=== PATIENT | female | born 1950 | race Caucasian/White ===

== ENCOUNTER 2017-02-06 05:39 | Emergency (ER) | payer OTHER ==
[~2017-02-06] VITALS: Ht 156.2 cm; Wt 63.8 kg
[2017-02-06 05:42] VITALS: TEMP 36.5; Ht 156.2 cm; Wt 63.8 kg
[2017-02-06] MEDS ORDERED: SULF800T23 PO (05:58)
[2017-02-06] MEDS ORDERED: SEPTRA DS HOME PACK 1 EA VIAL PO ONE (06:00)
[2017-02-06 06:05] VITALS: BP 140/72; PULSE 60; O2SAT 96
--- NOTE | 2017-02-06 06:28 | EMERGENCY ROOM VISIT NOTE ---
ED Visit Note First contact with patient: 05:48 CHIEF COMPLAINT: Frequent and painful urination HISTORY OF PRESENT ILLNESS: This 66-year-old female presents to the emergency department complaining of increased frequency of urination, burning pain with urination, and a feeling of incomplete voiding for the past 4-5 days. The patient passes very small volumes of urine with each episode of voiding. The patient does not have significant abdominal pain. They deny back pain, fever, or vaginal discharge. The patient has had frequent urinary tract infections in the past. Patient feels they are not at risk for STIs. REVIEW OF SYSTEMS: A 6 system review of systems was completed with positives and pertinent negatives listed in the HPI. ALLERGIES: Penicillin MEDICATIONS: See EMR PMH: See EMR SOCIAL HISTORY: See EMR PHYSICAL EXAM: Vital Signs: Reviewed Nurse's notes, vital signs stable. GENERAL : White female, in no acute distress, they do not appear toxic, well-developed, well-nourished. ABDOMEN: Positive bowel sounds x 4. The abdomen is soft, mildly tender in the suprapubic area, but no masses or organs are felt. There is no CVA tenderness. The skin is clear. NEURO: Alert and oriented to person place and time. EMERGENCY DEPARTMENT COURSE: I examined the patient. The urine dip showed signs of urine infection. The urine was sent for culture and sensitivity. The patient was given Bactrim. The patient was discharged home in good condition. Problem List Medical Problems: (1) Contusion of face Status: Resolved Current/Historical Medications Scheduled Sulfamethoxazole-Trimethoprim (Bactrim Ds 800MG/160MG), 1 TAB PO BID Allergies Coded Allergies: Penicillins (Verified Allergy, Intermediate, allergy test, 02/06/17) Vital Signs Date Time Temp Pulse Resp B/P (MAP) Pulse Ox O2 Delivery O2 Flow Rate FiO2 02/06/17 06:05 60 16 140/72 96 02/06/17 05:42 36.5 57 18 128/77 96 Room Air Laboratory Results Test 02/06/17 05:55 Medications Administered Medications (Trade) Dose Ordered Sig/Bhargav Route Start Time Stop Time Status Last Admin Dose Admin Trimethoprim/ Sulfamethoxazole (Sulfameth/ Trimeth Ds 800/ 160MG Home Pack) 1 homepack UD ONCE PO 02/06/17 06:00 02/06/17 06:01 DC 02/06/17 06:04 1 HOMEPACK Departure Information Impression Primary Impression: Urinary tract infection Dispostion Home / Self-Care Condition GOOD Prescriptions Sulfamethoxazole-Trimethoprim (Bactrim Ds 800MG/160MG) 1 Tab Tab 1 TAB PO BID for 9 Days, #18 TAB Prov: Dennis Bryant PA-C 02/06/17 Referrals RV. Elias MD (PCP) Forms HOME CARE DOCUMENTATION FORM, IMPORTANT VISIT INFORMATION Patient Instructions My [facility] Additional Instructions You were seen and evaluated today on an emergency basis only. This is not a substitute for, or an effort to provide, complete comprehensive medical care. It is not possible to recognize and treat all injuries or illnesses in a single emergency department visit. For this reason it is recommended that you followup with your primary care physician with any ongoing or persistent symptoms. Trimethoprim-Sulfamethoxazole(Bactrim DS): Take one pill twice daily for 10 days for your urine infection. All antibiotics can cause diarrhea. If this occurs and you feel worse or it does not resolve in 1-2 days follow up with your doctor or return to the Emergency Department as this could be signs of serious underlying problems. Any medication can cause an allergic reaction, stop the pills immediately and return to the ER for rash, hives, breathing difficulties, or swelling. You are welcome to return to the emergency department anytime with new, worsening, or concerning symptoms.
[2017-02-06 06:57] LABS: URINE APPEARANCE TURBID (CLEAR); URINE BILIRUBIN NEG (NEG); URINE COLOR YELLOW; URINE EPITHELIAL CELL AUTO >30 /lpf (0-5); URINE NITRITE NEG (NEG); URINE SPECIFIC GRAVITY 1.029 (1.000-1.030); UROBILINOGEN NEG (NEG)
[2017-02-06 06:58] LABS: MANUAL MICROSCOPIC REQUIRED? NO; REVIEW REQ? NO; ZZUR CULT IF INDIC CLEAN CATCH NO
== END 2017-02-06 06:06 | disposition home or self-care (01) ==
LOC: C.EDB 05:40
DX: N39.0 Urinary tract infection, site not specified (principal); Z88.0 Allergy status to penicillin

== ENCOUNTER → 2017-02-13 | Outpatient (CLI) | payer OTHER ==
[~2017-02-13] MED LIST: SULF800T23 PO
== END | disposition home or self-care (01) ==
LOC: C.PATHSPEC 17:12
PROVIDERS: ATTEND Nurse Practitioner Adult Health
DX: R31.0 Gross hematuria (principal)

== ENCOUNTER → 2017-02-15 | Outpatient (CLI) | payer OTHER ==
[~2017-02-15] MED LIST changes: +OPTIRAY 320 IV PRN
--- NOTE | 2017-02-15 14:02 | DIAGNOSTIC IMAGING REPORT ---
CT UROGRAM CLINICAL HISTORY: Gross hematuria. COMPARISON STUDY: Abdominal CT dated 05/31/2016. TECHNIQUE: Before and following the IV administration of 118 cc of Optiray 320, CT urogram of the abdomen and pelvis is performed from the lung bases to the proximal femora. Images are reviewed in the axial, sagittal, and coronal planes. IV contrast was administered without complication. A dose lowering technique was utilized adhering to the principles of ALARA. CT DOSE: 620.16 mGy.cm FINDINGS: Lung bases: The heart is normal in size and without pericardial effusion. Bilateral fat-containing Bochdalek hernias are identified. There is a 1.1 cm nodule in the right middle lobe seen on image #9, unchanged from previous. This appears to contain macroscopic fat and may represent a hamartoma. The lung bases are otherwise clear. A tiny hiatal hernia is noted. Liver: The contrast-enhanced liver is enlarged, measuring 18.6 cm in length. The liver demonstrates diffusely diminished attenuation consistent with hepatic steatosis. There is no intrahepatic biliary ductal dilatation. The hepatic veins and portal veins are patent. Gallbladder: Small calcified gallstones are observed. Spleen: Normal in size and attenuation. Pancreas: Unremarkable. Adrenal glands: Unremarkable. Kidneys and ureters: The contrast enhanced kidneys are normal in size and without hydronephrosis. There is a 2 mm nonobstructing calculus in the lower pole of the left kidney. No right renal calculi are identified on the unenhanced images. The kidneys enhance and excrete symmetrically. A parapelvic cyst is noted in the left lower pole. There is no enhancing renal cortical mass lesion identified. There is no evidence of urothelial lesion within the renal pelvis bilaterally or along the course of either ureter. The right proximal ureter is not well opacified by excreted contrast. Abdominal vasculature: The abdominal aorta is normal in course and caliber noting scattered foci of atherosclerotic calcification. Bowel: The small bowel and colon are normal in course and caliber. There are scattered colonic diverticula without CT evidence of acute diverticulitis. The appendix is well-visualized and normal. Peritoneum: There is no intraperitoneal free air or abdominal ascites. There is a fat-containing umbilical hernia. There is a 1.5 x 2.5 cm lobulated water attenuation structure identified adjacent to the cecum and the right lower quadrant on image #234. This is discrete from the appendix. Lymphadenopathy: None. Pelvic viscera: The bladder is decompressed and grossly unremarkable. The uterus and adnexa are normal as visualized. Skeletal structures: The skeletal structures are osteopenic. There is a moderate compression deformity of T12. Mild lumbosacral spondylosis is observed. Hemangiomas are noted in the bodies of L1, L2, and L3. No lytic or blastic bony lesions are seen. IMPRESSION: 1. The kidneys are normal in size and without hydronephrosis. A 2 mm nonobstructing calculus is present in the left kidney. 2. There is no enhancing renal cortical mass, and no evidence of urothelial lesion within the renal pelvis bilaterally or along the course of the ureters. 3. The bladder is decompressed and grossly unremarkable. 4. Hepatomegaly and hepatic steatosis. 5. An 11 mm pulmonary nodule is seen in the right middle lobe and is unchanged from 05/31/2016. This contains foci of macroscopic fat and likely represents a benign hamartoma. Consider follow-up with a dedicated CT scan of the chest for further interrogation of the thorax. 6. There is a 2.5 cm lobulated water attenuation structure identified adjacent to the cecum. This likely represents a lymphangioma or inclusion cyst and is discrete from the normal appendix. This is of doubtful significance. 7. Small gallstones are noted. 8. Additional findings as above. Electronically signed by: Shimon Clemons M.D. 02/15/2017 2:00 PM Dictated Date/Time: 02/15/2017 1:49 PM
== END | disposition home or self-care (01) ==
LOC: C.CTS 13:08
PROVIDERS: ATTEND Nurse Practitioner Adult Health
DX: R31.0 Gross hematuria (principal); N20.0 Calculus of kidney; R16.0 Hepatomegaly, not elsewhere classified; K76.0 Fatty (change of) liver, not elsewhere classified; R91.1 Solitary pulmonary nodule; K63.89 Other specified diseases of intestine; K80.20 Calculus of gallbladder without cholecystitis without obstruction

== ENCOUNTER → 2017-08-22 | Outpatient (CLI) | payer OTHER ==
--- NOTE | 2017-08-22 14:27 | DIAGNOSTIC IMAGING REPORT ---
CT SCAN OF THE CHEST WITHOUT IV CONTRAST CLINICAL HISTORY: Pulmonary nodule. COMPARISON STUDY: Abdominal CT dated 05/31/2016. TECHNIQUE: CT scan of the thorax was performed from the thoracic inlet to the upper abdomen. Images are reviewed in the axial, sagittal, and coronal planes. IV contrast was not administered for this examination as per the referring clinician. A dose lowering technique was utilized adhering to the principles of ALARA. CT DOSE: 269.75 mGycm FINDINGS: Thyroid: Imaged portions of the thyroid gland are normal in size and attenuation. Thoracic aorta: The thoracic aorta is normal in caliber and demonstrates standard 3-vessel arch anatomy. Heart: The heart is normal in size and without pericardial effusion. Lungs and pleural spaces: A fat-containing Bochdalek hernia is seen at the right lung base. No airspace consolidation or pleural effusion is seen. The trachea and central airways are clear. There is a 12 mm pulmonary nodule in the right middle lobe, best seen on axial image #190. This has not significant changed from 05/31/2016. Foci of fat are suggested within this nodule. No new pulmonary nodule is identified. Mediastinum: There is no mediastinal lymphadenopathy. There are calcified prevascular lymph nodes. Caren: Not well assessed without IV contrast. There are calcified left hilar nodes. Axillae: There is no axillary lymphadenopathy. Upper abdomen: A tiny hiatal hernia is noted. Partially visualized upper abdominal viscera is otherwise within normal limits. Skeletal structures: The skeletal structures are osteopenic. A moderate compression deformity is noted in the body of L2. Mild degenerative change is seen throughout the thoracic spine. No lytic or blastic bony lesions are seen. IMPRESSION: 1. There is no airspace consolidation or pleural effusion. 2. There is unchanged appearance of a 12 mm pulmonary nodule in the right middle lobe. This is pathologically indeterminant. Foci of intralesional fat are suggested and this may represent a benign hamartoma. Continued follow-up is recommended. See below. 3. No new pulmonary nodule is identified. 4. A chronic compression deformity of L2 is unchanged. Please refer to below summary of Fleischner criteria recommendations for follow-up of incidental CT nodules (Isabel Deleon, Guidelines for management of small pulmonary nodules detected on CT scans: A statement from the Fleischner Society, Radiology 237: [phone].) SOLID NODULES Solitary nodule size: <6 mm * low risk patients: no follow-up needed * high risk patients: optional CT at 12 months Solitary nodule size: 6-8 mm * low risk patients: follow-up at 6-12 months, then consider further follow-up at 18-24 months * high risk patients: initial follow-up CT at 6-12 months and then at 18-24 months if no change Solitary nodule size: >8 mm * either low or high risk patients - consider follow-up CT at 3 months, and/or CT-PET, and/or biopsy Multiple nodules size: <6 mm * low risk patients: no routine follow-up * high risk patients: optional CT at 12 months Multiple nodules size: 6-8 mm * low risk patients: follow-up at 3-6 months, then consider further follow-up at 18-24 months * high risk patients: follow-up at 3-6 months, then at 18-24 months if no change Multiple nodules size: >8 mm * low risk patients: follow-up at 3-6 months, then consider further follow-up at 18-24 months * high risk patients: follow-up at 3-6 months, then at 18-24 months if no change Note: newly detected indeterminate nodule in persons 35 years of age or older. * low risk patients: minimal or absent history of smoking and/or other known risk factors * high risk patients: history of smoking or of other known risk factors (e.g. first degree relative with lung cancer, or exposure to asbestos, radon, uranium) * if a nodule up to 8 mm is partly solid or is ground glass further follow-up is required after 24 months to exclude possible slow growing adenocarcinoma (IRMA) SUBSOLID NODULES Solitary pure ground-glass nodule * nodule size <6 mm - no CT follow-up required * nodule size >=6 mm - follow-up CT at 6-12 months, then every 2 years until 5 years Solitary part-solid nodule * nodule size <6 mm - no CT follow-up required * nodule size >=6 mm - follow-up CT at 3-6 months. If unchanged, and solid component remains <6 mm, then annual follow-up for 5 years Multiple subsolid nodules * nodule size <6 mm - follow-up CT at 3-6 months, consider further follow-up at 2 and 4 years if stable * nodule size >=6 mm - follow-up CT at 3-6 months, subsequent management based on the most suspicious nodule(s) Electronically signed by: Shimon Clemons M.D. 08/22/2017 2:26 PM Dictated Date/Time: 08/22/2017 2:21 PM
== END | disposition home or self-care (01) ==
LOC: C.CTS 14:06
PROVIDERS: ATTEND Internal Medicine
DX: R91.1 Solitary pulmonary nodule (principal)

== ENCOUNTER → 2017-09-20 | Outpatient (CLI) | payer OTHER | END | disposition home or self-care (01) | LOC: C.LAB1850 15:23 | PROVIDERS: ATTEND Internal Medicine | DX: R31.0 Gross hematuria (principal) ==

== ENCOUNTER → 2017-09-21 | Outpatient (CLI) | payer OTHER ==
[2017-09-21 09:32] LABS: BASO % 0.5 %; BASO ABS # 0.03 K/uL (0-0.2); EOS % 2.2 %; EOS ABS # 0.12 K/uL (0-0.5); HEMATOCRIT 41.4 % (37-47); HEMOGLOBIN 13.9 g/dL (12.0-16.0); IG# 0.02 K/uL (0.00-0.02); LYMPH % 33.2 %; LYMPH ABS # 1.82 K/uL (1.2-3.4); MEAN CELL VOLUME 88.8 fL (80-100); MEAN CORPUSCULAR HEMOGLOBIN 29.8 pg (25-34); MEAN CORPUSCULAR HGB CONC 33.6 g/dl (32-36); MEAN PLATELET VOLUME 11.1 fL (7.4-10.4); MONO ABS # 0.44 K/uL (0.11-0.59); NEUT % 55.7 %; NEUT ABS # 3.05 K/uL (1.4-6.5); PLATELET COUNT 216 K/uL (130-400); RED CELL DISTRIBUTION WIDTH CV 14.1 % (11.5-14.5); RED CELL DISTRIBUTION WIDTH SD 45.9 fL (36.4-46.3); WHITE BLOOD COUNT 5.48 K/uL (4.8-10.8)
[2017-09-21 09:52] LABS: ALBUMIN 3.4 gm/dl (3.4-5.0); ALT/SGPT 25 U/L (12-78); AST/SGOT 12 U/L (15-37); BLOOD UREA NITROGEN 17 mg/dl (7-18); CALCIUM 8.5 mg/dl (8.5-10.1); CARBON DIOXIDE 23 mmol/L (21-32); CREATININE 0.61 mg/dl (0.60-1.20); GLUCOSE 110 mg/dl (70-99); POTASSIUM 4.1 mmol/L (3.5-5.1); SODIUM 140 mmol/L (136-145)
[2017-09-21 10:03] LABS: ALKALINE PHOSPHATASE 75 U/L (45-117); CHOLESTEROL 237 mg/dl (0-200); LDL CHOLESTEROL CALCULATED 151 mg/dl; TOTAL PROTEIN 7.3 gm/dl (6.4-8.2)
== END | disposition home or self-care (01) ==
LOC: C.LAB1850 08:19
PROVIDERS: ATTEND Internal Medicine
DX: Z13.1 Encounter for screening for diabetes mellitus (principal); Z13.220 Encounter for screening for lipoid disorders; R31.0 Gross hematuria; R91.1 Solitary pulmonary nodule; Z13.0 Encounter for screening for diseases of the blood and blood-forming organs and certain disorders involving the immune mechanism; N20.0 Calculus of kidney; M25.561 Pain in right knee; Z13.29 Encounter for screening for other suspected endocrine disorder

== ENCOUNTER → 2018-02-23 | Outpatient (CLI) | payer OTHER ==
--- NOTE | 2018-02-23 10:25 | DIAGNOSTIC IMAGING REPORT ---
(CHEST) THORAX WITHOUT CT DOSE: 335.55 mGycm HISTORY: LUNG NODULE TECHNIQUE: Multiaxial CT images of the chest were performed without contrast. A dose lowering technique was utilized adhering to the principles of ALARA. COMPARISON: Chest CT . FINDINGS: Stable 12 mm nodule within the right middle lobe on image 209. There appear to be small foci of fat located within this nodule. Therefore, this likely represents a benign hamartoma. No pneumothorax. No pleural effusions. The central airways are patent. Calcified left hilar lymph nodes are again noted. Old, healed right lower rib fractures. No suspicious lytic or blastic osseous lesions. No mediastinal hilar lymphadenopathy. The heart is normal in size. Normal caliber thoracic aorta. The visualized spleen and adrenal glands are unremarkable. IMPRESSION: Stable 12 mm nodule within the right middle lobe. This favors a benign hematoma as described above. An additional one year chest CT follow up can be performed to ensure stability. Electronically signed by: Raj Basurto M.D. 02/23/2018 10:24 AM Dictated Date/Time: 02/23/2018 10:18 AM
== END | disposition home or self-care (01) ==
LOC: C.CTS 09:40
PROVIDERS: ATTEND Internal Medicine
DX: R91.1 Solitary pulmonary nodule (principal)

== ENCOUNTER 2024-02-24 04:30 | Observation (INO) ==
--- NOTE | 2024-02-24 04:44 | Emergency Department Note ---
History of Present Illness General Chief complaint: Trauma Stated complaint: Fall Down Stairs, Wrist Pain, Hit Head Time Seen by Provider: 02/24/24 04:30 History of Present Illness This 73-year-old female who states she is healthy with no active medical problems presents the ER for falling down 10 steps who was a trauma alert. Patient complains of head injury, neck pain, right rib pain and bilateral wrist pain. No blood thinners. Patient denies loss of conscious, numbness, tingling, localized weakness. Home Medications Medication Instructions Recorded Confirmed Type cholecalciferol (vitamin D3) 50 50 mcg PO DAILY #90 caps 11/11/20 02/24/24 Rx mcg (2,000 unit) capsule mecobalamin (vitamin B12) 1,000 1,000 mcg PO DAILY #90 tabs 11/11/20 02/24/24 Rx mcg chewable tablet magnesium citrate 100 mg capsule 200 mg PO QAM 02/24/24 02/24/24 History omega 8-zrd-elw-fish oil 1,000 mg 1 cap PO QAM 02/24/24 02/24/24 History (120 mg-180 mg) capsule (Fish Oil) Allergies Allergy/AdvReac Type Severity Reaction Status Date / Time Penicillins Allergy Intermediate allergy Verified 02/24/24 08:53 test prednisone AdvReac Verified 02/24/24 08:53 Past Med/Surg History Problem List (Updated 02/24/24 @ 06:33 by Fadumo Rodas PA-C) Fall (Acute) Head injury (Acute) Left wrist fracture (Acute) Right wrist fracture (Acute) Grieving Colon cancer screening Left shoulder pain Vitamin D deficiency disease Right ear impacted cerumen Health care maintenance Deformity of foot (Acute) Hyperglycemia (Acute) Hyperlipidemia (Acute) Knee pain, bilateral (Acute) Lung nodule (Acute) Nephrolithiasis (Acute) Osteopenia (Acute) Medical History Abdominal bloating Cerumen impaction No known health problems Urinary tract infection Contusion of face Surgical History S/P breast lumpectomy Family History Mother Cardiac disorder Father Cardiac disorder Myocardial infarction Adrenal cancer Aunt No problems noted. 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 Beliefs That Will Affect Care: Spiritual Spiritual Healthcare Practices: Strict on the chemicals going into her body NO NSAIDS NO Contrast dye DIET: Non-Lectin and no lactose marital status: Current Living Situation: Alone current occupational status: employed Feels Safe at Home: Yes Childhood Exposure to Second-Hand Smoke: Yes Dental Care, Regularly: Yes Physical Activity Frequency: Daily Seatbelt Use: always Sunscreen Use: Yes Assistive Devices: Glasses Review of Systems A total of 10 systems reviewed and were otherwise negative Physical Exam Vital Signs Vital Signs - 24 hr 02/24/24 04:35 02/24/24 04:36 02/24/24 04:36 Temperature 36.9 C 36.9 C Temperature Source Oral Pulse Rate 77 74 Pulse Rate [Left Radial] Pulse Rate from SpO2 Sensor Pulse Rhythm Regular Pulse Rhythm [Left Radial] Pulse Strength Normal Pulse Strength [Left Radial] Respiratory Rate 16 16 Respiratory Effort / Characteristics Non-Labored Spontaneous Respiratory Depth Normal Respiratory Pattern Regular Blood Pressure 127/51 L Blood Pressure [Right Arm] Blood Pressure Mean 76 Blood Pressure Mean [Right Arm] Blood Pressure Position Lying Blood Pressure Position [Right Arm] Pulse Oximetry 100 98 Oxygen Delivery Method Room Air Room Air Room Air Sepsis Recent Fever Within 48 Hours No Sepsis New/Unexplained Change in Mental Status No Sepsis Action Taken by Nursing No Action Required 02/24/24 04:38 02/24/24 04:50 02/24/24 05:30 Temperature Temperature Source Pulse Rate 81 Pulse Rate [Left Radial] 78 Pulse Rate from SpO2 Sensor Pulse Rhythm Pulse Rhythm [Left Radial] Regular Pulse Strength Pulse Strength [Left Radial] Normal Respiratory Rate 16 Respiratory Effort / Characteristics Non-Labored Spontaneous Respiratory Depth Normal Respiratory Pattern Regular Blood Pressure Blood Pressure [Right Arm] 106/63 Blood Pressure Mean Blood Pressure Mean [Right Arm] 77 Blood Pressure Position Blood Pressure Position [Right Arm] Lying Pulse Oximetry 98 Oxygen Delivery Method Room Air Room Air Sepsis Recent Fever Within 48 Hours Sepsis New/Unexplained Change in Mental Status Sepsis Action Taken by Nursing 02/24/24 06:10 02/24/24 07:03 02/24/24 07:22 Temperature Temperature Source Pulse Rate 82 88 Pulse Rate [Left Radial] 77 Pulse Rate from SpO2 Sensor 82 Pulse Rhythm Pulse Rhythm [Left Radial] Regular Pulse Strength Pulse Strength [Left Radial] Normal Respiratory Rate 16 12 14 Respiratory Effort / Characteristics Non-Labored Spontaneous Respiratory Depth Normal Respiratory Pattern Regular Blood Pressure 123/68 Blood Pressure [Right Arm] 113/64 Blood Pressure Mean 97 Blood Pressure Mean [Right Arm] 80 Blood Pressure Position Blood Pressure Position [Right Arm] Pulse Oximetry 97 92 93 Oxygen Delivery Method Room Air Room Air Room Air Sepsis Recent Fever Within 48 Hours Sepsis New/Unexplained Change in Mental Status Sepsis Action Taken by Nursing 02/24/24 08:00 02/24/24 08:31 02/24/24 08:31 Temperature Temperature Source Pulse Rate 89 90 83 Pulse Rate [Left Radial] Pulse Rate from SpO2 Sensor 88 Pulse Rhythm Pulse Rhythm [Left Radial] Pulse Strength Pulse Strength [Left Radial] Respiratory Rate 14 21 14 Respiratory Effort / Characteristics Respiratory Depth Respiratory Pattern Blood Pressure 134/72 121/70 121/70 Blood Pressure [Right Arm] Blood Pressure Mean 92 79 79 Blood Pressure Mean [Right Arm] Blood Pressure Position Blood Pressure Position [Right Arm] Pulse Oximetry 94 95 Oxygen Delivery Method Room Air Sepsis Recent Fever Within 48 Hours Sepsis New/Unexplained Change in Mental Status Sepsis Action Taken by Nursing 02/24/24 08:47 02/24/24 09:30 02/24/24 10:09 Temperature Temperature Source Pulse Rate 81 83 91 H Pulse Rate [Left Radial] Pulse Rate from SpO2 Sensor 90 Pulse Rhythm Pulse Rhythm [Left Radial] Pulse Strength Pulse Strength [Left Radial] Respiratory Rate 19 16 Respiratory Effort / Characteristics Respiratory Depth Respiratory Pattern Blood Pressure 138/68 131/67 Blood Pressure [Right Arm] Blood Pressure Mean 87 88 Blood Pressure Mean [Right Arm] Blood Pressure Position Blood Pressure Position [Right Arm] Pulse Oximetry 95 93 Oxygen Delivery Method Room Air Sepsis Recent Fever Within 48 Hours Sepsis New/Unexplained Change in Mental Status Sepsis Action Taken by Nursing 02/24/24 10:51 Temperature Temperature Source Pulse Rate 83 Pulse Rate [Left Radial] Pulse Rate from SpO2 Sensor 83 Pulse Rhythm Pulse Rhythm [Left Radial] Pulse Strength Pulse Strength [Left Radial] Respiratory Rate 13 Respiratory Effort / Characteristics Respiratory Depth Respiratory Pattern Blood Pressure 106/88 Blood Pressure [Right Arm] Blood Pressure Mean 94 Blood Pressure Mean [Right Arm] Blood Pressure Position Blood Pressure Position [Right Arm] Pulse Oximetry 92 Oxygen Delivery Method Sepsis Recent Fever Within 48 Hours Sepsis New/Unexplained Change in Mental Status Sepsis Action Taken by Nursing PHYSICAL EXAM: VITALS: Vitals are noted on the nurse's note and reviewed by myself. Vital signs stable. GENERAL: White female, in no acute distress, nondiaphoretic, well-developed well-nourished. SKIN: Left-sided forehead abrasion and contusion, the rest of the skin was without obvious lacerations or abrasions. Capillary reflex less than 2 seconds. HEAD: Normocephalic atraumatic. EARS: External auditory canals clear, EYES: Pupils equal round and reactive to light and accommodation. Conjunctivae without injection, sclerae without icterus. Extraocular movements intact. NOSE: Patent, turbinates without inflammation or discharge. No sinus tenderness. No septal hematoma or bleeding. FACE: No facial bone tenderness. Full range of motion of the jaw without tenderness. MOUTH: Mucous membranes moist. Pharynx without erythema or exudate. Uvula midline. Airway patent. Tongue does not deviate. NECK: Supple without nuchal rigidity. Cervical spine is minimally tender to palpation C5 and 6 and c-collar was placed. No JVD. HEART: Regular rate and rhythm LUNGS: Clear to auscultation bilaterally without wheezes, rales or rhonchi. No dullness to percussion. No retractions or accessory muscle use. No chest wall tenderness. ABDOMEN: Positive bowel sounds x 4. Normal tympanic percussion. Soft, nontender, without masses or organomegaly. No guarding or rebound tenderness. MUSCULOSKELETAL: No tenderness of the thoracic or lumbar spine. No tenderness with pelvic rocking. Bilateral wrist tender to palpation, full range of motion without tenderness to palpation in all other extremities. Peripheral pulses 2+. NEURO: Patient was alert and oriented to person place and time. Normal sensation to light and sharp touch. No focal neurological deficits. Course Administered Medications Acetaminophen (Acetaminophen 500 Mg Tab) 1,000 mg PO TID YANIRA Stop: 03/25/24 13:59 Last Admin: 02/24/24 22:36 Dose: Not Given Documented By: Admin: 02/24/24 14:47 Dose: Not Given Documented By: WANDA Discontinued Medications Bupivacaine HCl (Bupivacaine/Epinephrine 0.5% 1:200,000 1.8 Ml Carp) Confirm Administered Dose 1.8 ml .ROUTE .ST-MED ONE Stop: 02/24/24 10:18 Last Admin: 02/24/24 11:25 Dose: 1.8 ml Documented By: KIERAN Bupivacaine HCl (Bupivacaine/Epinephrine 0.5% 1:200,000 1.8 Ml Carp) Confirm Administered Dose 1.8 ml .ROUTE .ST-MED ONE Stop: 02/24/24 10:19 Last Admin: 02/24/24 11:26 Dose: 1.8 ml Documented By: KIERAN Bupivacaine HCl (Bupivacaine/Epinephrine 0.5% 1:200,000 1.8 Ml Carp) Confirm Administered Dose 5.4 ml .ROUTE .[facility] ONE Stop: 02/24/24 10:20 Last Admin: 02/24/24 11:23 Dose: Not Given Documented By: KIERAN Bupivacaine HCl/Epinephrine Bitart (Bupivacaine/Epinephrine 0.25% 1:200,000 30 Ml Vial) 5 ml INFIL NOW ONE Stop: 02/24/24 10:32 Last Admin: 02/24/24 12:09 Dose: Not Given Documented By: KIERAN Bupivacaine HCl/Epinephrine Bitart (Bupivacaine/Epinephrine 0.5% Mpf 1:200,000 30 Ml Vial) 5 ml INFIL NOW ONE Stop: 02/24/24 12:56 Last Admin: 02/24/24 13:36 Dose: Not Given Documented By: KIERAN Acetaminophen (Ofirmev) 1,000 mg in 100 mls @ 400 mls/hr IV NOW STA Stop: 02/24/24 04:51 Last Admin: 02/24/24 09:50 Dose: Not Given Documented By: KIERAN Lidocaine HCl (Lidocaine 1% Local 20 Ml Vial) Confirm Administered Dose 1 ml .ROUTE .[facility] ONE Stop: 02/24/24 10:14 Last Admin: 02/24/24 11:21 Dose: Not Given Documented By: KIERAN Lidocaine HCl (Lidocaine 1% Local 20 Ml Vial) 5 ml INFIL NOW STA Stop: 02/24/24 10:35 Last Admin: 02/24/24 11:25 Dose: 5 ml Documented By: KIERAN Morphine Sulfate (Morphine Sulfate 4 Mg/Ml 1 Ml Carp\Vial) Confirm Administered Dose 4 mg .ROUTE .STK-MED ONE Stop: 02/24/24 11:15 Last Admin: 02/24/24 11:21 Dose: Not Given Documented By: KIERAN Morphine Sulfate (Morphine Sulfate 4 Mg/Ml 1 Ml Carp\Vial) 4 mg IV NOW STA Stop: 02/24/24 11:20 Last Admin: 02/24/24 11:22 Dose: 4 mg Documented By: KIERAN Medical Decision Making Medical Records Attestation: I reviewed the patient's medical records. Home Medications Current Medication List: was personally reviewed by ms Laboratory Data Attestation: I reviewed the patient's lab results. 02/24/24 04:38 02/24/24 04:38 Lab Results 02/24/24 02/24/24 Range/Units 04:38 04:44 WBC 7.51 (4.8-10.8) K/ul RBC 4.90 (4.20-5.40) M/uL Hgb 13.7 (12.0-16.0) g/dl POC Hgb 14.3 (12.0-16.0) g/dl Hct 42.6 (37.0-47.0) % POC Hct 42 (37-47) % MCV 86.9 (80.0-100.0) fL MCH 28.0 (25.0-34.0) pg MCHC 32.2 (32.0-36.0) g/dL RDW Std Deviation 45.0 (36.4-46.3) fL RDW Coeff of Puja 14.3 (11.5-14.5) % Plt Count 212 (130-400) K/uL MPV 11.7 (9.4-12.4) fL Immature Gran % (Auto) 0.5 % Neut % (Auto) 57.3 % Lymph % (Auto) 33.0 % [place] % (Auto) 7.2 % Eos % (Auto) 1.2 % Baso % (Auto) 0.8 % Neut # (Auto) 4.30 (1.40-6.50) K/uL Lymph # (Auto) 2.48 (1.20-3.40) K/uL [place] # (Auto) 0.54 (0.11-0.59) K/uL Eos # (Auto) 0.09 (0.00-0.50) K/uL Baso # (Auto) 0.06 (0.00-0.20) K/uL Immature Gran # (Auto) 0.04 (0.01-0.20) K/uL POC Sodium 138 (135-144) mmol/L Sodium 137 (136-145) mmol/L POC Potassium 3.6 (3.3-5.0) mmol/L Potassium 3.6 (3.5-5.1) mmol/L POC Chloride 104 (101-112) mmol/L Chloride 103 (98-107) mmol/L Carbon Dioxide 26 (21-32) mmol/L POC Total CO2 23 L (24-31) mmol/L Anion Gap 8 (3-11) POC Anion Gap 16.0 (16-25) mmol/L POC BUN 19 H (7-18) mg/dl BUN 20 (6-23) mg/dl Creatinine 0.72 (0.6-1.2) mg/dl POC Creatinine 0.8 (0.6-1.3) mg/dl Est Cr Clr Drug Dosing Not Reportable Est GFR ( Amer) 97.0 ml/min Est GFR (Non-Af Amer) 83.7 ml/min BUN/Creatinine Ratio 27.8 H (10-20) Glucose 126 H (70-99(Fasting)) mg/dl POC Glucose (other) 122 H (70-99) mg/dl Calcium 9.8 (8.6-10.3) mg/dl POC Ioniz Calcium Dayna 1.16 (1.12-1.32) mmol/l Total Bilirubin 0.6 (0.2-1.0) mg/dl AST 17 (13-39) U/L ALT 18 (7-52) U/L Alkaline Phosphatase 76 (34-104) U/L Total Protein 7.7 (6.0-8.3) gm/dl Albumin 4.5 (3.4-5.0) gm/dl Globulin 3.2 (2.5-4.0) gm/dl Albumin/Globulin Ratio 1.4 (0.9-2) Imaging Data Attestation: I personally reviewed and interpreted this imaging study as follows: Radiologist's Impression: Wrist X-Ray 02/24/24 00:00 FL wrist LT 2V CLINICAL HISTORY: LT WRIST REDUCTION COMPARISON STUDY: Left wrist radiographs performed earlier today. FLUOROSCOPY TIME: 5.12 seconds. Ka, r: 0.1182 mGy FLUOROSCOPIC IMAGES: 2 FINDINGS: Fluoroscopy was provided during reduction of the distal left radial fracture. Fracture alignment has significantly improved. Fine detail is diminished given overlying cast. IMPRESSION: Fluoroscopy provided during reduction of the distal left radial fracture. ACT 112: Negative or not required by law. Electronically signed by: Mu Marie M.D. 02/24/2024 12:08 PM [facility] Narrative Prior records/ancillary studies reviewed. Triage Nursing notes reviewed. Additional history obtained from EMS. The patient's history was concerning for traumatic injury Differential diagnosis: Etiologies such as fracture, dislocation, intra-abdominal, pneumothorax, intrathoracic , intracranial, neurologic, as well as other traumatic pathologies were entertained. Physical examination findings: As above. The patients vitals were stable. ER treatment provided: IV Normal Saline hydration, Tylenol was ordered An order was placed for continuous cardiac monitoring. The monitor shows a rate of 60-100 with a sinus rhythm per my interpretation. On reassessment the patient felt better. Vital signs were stable. Diagnostic interpretation by me: The labs Independently Interpreted by myself revealed stable H&H, no worrisome leukocytosis Mild hyperglycemia without DKA Imaging studies: Right wrist x-ray concerning for distal radius fracture per my independent interpretation Left wrist x-ray concerning for comminuted distal wrist fracture per my independent interpretation CTs as above and were negative for acute findings per radiology Patient is adamantly refusing IV dye for CTs as she states her mom had anaphylaxis. I did try to convince the patient to do with IV dye and is adamant she will not. Splinting Indication: Wrist fracture Location: Right wrist Type of fx: Closed Verbal consent obtained. Risks and benefits were explained with the usual customary discussion. The injured extremity was identified. The patient was prepped and measured for the placement of a volar ortho-glass splint. Splint applied in the standard fashion over a layer of webril and secured using an elastic bandage. Set into a position of function. Normal neurovascular status after placement verified by me. The patient tolerated the procedure well and the care of the splint was discussed with the patient/family. No complications. Splinting Indication: Wrist fracture Location: left wrist Type of fx: Closed, comminuted Verbal consent obtained. Risks and benefits were explained with the usual customary discussion. The injured extremity was identified. The patient was prepped and measured for the placement of a sugar tong ortho-glass splint. Splint applied in the standard fashion over a layer of webril and secured using an elastic bandage. Set into a position of function. Normal neurovascular status after placement verified by me. The patient tolerated the procedure well and the care of the splint was discussed with the patient/family. No complications. Consultation: A consultation was placed with hospitalist. The case was discussed and diagnostics were reviewed. The patient was evaluated for admission. This appears to be consistent with bilateral wrist fractures. Patient was splinted as above. Medicine was consulted and the case is discussed. She will be admitted to the medical service for further evaluation and workup. By the evaluation outlined above emergent etiologies such as intra-abdominal, pneumothorax, pulmonary contusion, hemothorax, intracranial, neurologic,as well as others were deemed relatively unlikely. The pt informed about the findings as listed above. All questions were answered and pleased with the treatment. The chart was completed utilizing [employer] Speech voice recognition software. Grammatical errors, random word insertions, pronoun errors, and incomplete sentences are an occassional consequence of this system due to software limitations, ambient noise, and hardware issues. Any formal questions or concerns about the content, text, or information contained within the body of this dictation should be directly addressed to the physician personnel assistant for clarification. Impression & Plan Right wrist fracture, Left wrist fracture, Head injury, Fall Discharge Plan Visit Data Chief Complaint: Trauma Stated Complaint: Fall Down Stairs, Wrist Pain, Hit Head ED Provider: Savannah Sanchez ED Midlevel Provider: Fadumo Rodas Discharge Problem: Right wrist fracture, Left wrist fracture, Head injury, Fall Patient Disposition: Admitted As Inpatient Condition: Good Discharge Instructions Interventions: ED Discharge Assessment Last Done: 02/24/24 15:46 Discharge Problem: Right wrist fracture Qualifiers: Encounter type: initial encounter Fracture type: closed Qualified Code(s): S 62.101A - Fracture of unspecified carpal bone, right wrist, initial encounter for closed fracture
[2024-02-24 04:58] LABS: Basophils # (auto) 0.06 K/uL (0.00-0.20); Basophils % (auto) 0.8 %; Eosinophils # (auto) 0.09 K/uL (0.00-0.50); Eosinophils % (auto) 1.2 %; Hematocrit (blood only) 42.6 % (37.0-47.0); Hemoglobin 13.7 g/dl (12.0-16.0); Immature Granulocytes # (auto) 0.04 K/uL (0.01-0.20); Immature Granulocytes % (auto) 0.5 %; Lymphocytes # (auto) 2.48 K/uL (1.20-3.40); Mean Corpuscular Hgb Conc 32.2 g/dL (32.0-36.0); Mean Corpuscular Volume 86.9 fL (80.0-100.0); Mean Platelet Volume 11.7 fL (9.4-12.4); Monocytes # (auto) 0.54 K/uL (0.11-0.59); Monocytes % (auto) 7.2 %; Neutrophils % (auto) 57.3 %; Platelet Count 212 K/uL (130-400); RDW Coefficient of Variation 14.3 % (11.5-14.5); White Blood Count 7.51 K/ul (4.8-10.8)
[2024-02-24 05:13] LABS: Alanine Aminotransferase 18 U/L (7-52); Albumin Globulin Ratio 1.4 (0.9-2); Albumin Level 4.5 gm/dl (3.4-5.0); Alkaline Phosphatase 76 U/L (34-104); Anion Gap 8 (3-11); Aspartate Aminotransferase 17 U/L (13-39); BUN Creatinine Ratio 27.8 (10-20); Bilirubin,Total 0.6 mg/dl (0.2-1.0); Blood Urea Nitrogen 20 mg/dl (6-23); Calcium 9.8 mg/dl (8.6-10.3); Carbon Dioxide 26 mmol/L (21-32); Chloride 103 mmol/L (98-107); Est GFR (Non-African American) 83.7 ml/min; Globulin 3.2 gm/dl (2.5-4.0); Glucose 126 mg/dl (70-99(Fasting)); Potassium 3.6 mmol/L (3.5-5.1); Sodium 137 mmol/L (136-145); Total Protein 7.7 gm/dl (6.0-8.3)
--- NOTE | 2024-02-24 06:12 | CT Scan Report ---
Exam(s): CT HEAD Without Contrast EXAM: CT Head Without Intravenous Contrast CLINICAL HISTORY: Reason for exam: Trauma. TECHNIQUE: Axial computed tomography images of the head/brain without intravenous contrast. CTDI is 35.37 mGy and DLP is 2840.93 mGy-cm. Automated exposure control was utilized for the study. A dose lowering technique was utilized adhering to the principles of ALARA. COMPARISON: No relevant prior studies available. FINDINGS: Brain: Unremarkable. No hemorrhage. No significant white matter disease. No edema. Ventricles: Unremarkable. No ventriculomegaly. Bones/joints: Unremarkable. No acute fracture. Soft tissues: Unremarkable. Sinuses: Unremarkable as visualized. No acute sinusitis. Mastoid air cells: Unremarkable as visualized. No mastoid effusion. IMPRESSION: Normal head/brain CT. Electronically signed by: Angel Gómez MD 02/24/24 06:10 AM
--- NOTE | 2024-02-24 06:17 | CT Scan Report ---
Exam(s): CT ABDOMEN + PELVIS Without Contrast Discussed with Alex Berrios PA-C on 02/23 06:15 (-04:00)E Discussed with Dr. Sanchez on 02/23 06:15 (-04:00)XAM: CT Abdomen and Pelvis Without Intravenous Contrast CLINICAL HISTORY: Reason for exam: Trauma. TECHNIQUE: Axial computed tomography images of the abdomen and pelvis without intravenous contrast. CTDI is 35.37 mGy and DLP is 2840.93 mGy-cm. Automated exposure control was utilized for the study. A dose lowering technique was utilized adhering to the principles of ALARA. COMPARISON: 02/15/2017 FINDINGS: Limitations: Exam limited secondary to a lack of IV contrast. Lung bases: 1 cm pulmonary nodule right middle lobe unchanged from prior exam. No consolidation. ABDOMEN: Liver: Unremarkable. Gallbladder and bile ducts: Cholelithiasis without CT evidence to suggest acute cholecystitis. No ductal dilation. Pancreas: Unremarkable. No ductal dilation. Spleen: Unremarkable. No splenomegaly. Adrenals: Unremarkable. No mass. Kidneys and ureters: Unremarkable. No obstructing stones. No hydronephrosis. Stomach and bowel: Unremarkable. No obstruction. No mucosal thickening. PELVIS: Appendix: No findings to suggest acute appendicitis. Bladder: Unremarkable. No stones. Reproductive: Uterus is surgically absent. There is fullness to the cervical cuff which is somewhat asymmetric. ABDOMEN and PELVIS: Intraperitoneal space: Unremarkable. No free air. No significant fluid collection. Bones/joints: Age indeterminate likely chronic L1 vertebral body compression fracture resulting in 20% vertebral body height loss. No dislocation. Soft tissues: Unremarkable. Vasculature: Unremarkable. No abdominal aortic aneurysm. Lymph nodes: Unremarkable. No enlarged lymph nodes. IMPRESSION: Exam limited as described above No acute findings in the abdomen or pelvis. Chronic changes as above. Electronically signed by: Angel Gómez MD 02/24/24 06:16 AM
--- NOTE | 2024-02-24 06:23 | Emergency Department Note ---
ED Visit Note I was consulted by the Advanced Practice Provider. I personally made/approved the management plan and take responsibility for the patient management. I performed a substantive portion of the visit. This includes the aspects of: Personally seeing the patient MDM I independently interpreted the following studies: bilateral wrist [id number] radius fractures bilaterally .
--- NOTE | 2024-02-24 06:29 | CT Scan Report ---
Exam(s): CT CHEST Without Contrast EXAM: CT Chest Without Intravenous Contrast CLINICAL HISTORY: Reason for exam: Trauma. TECHNIQUE: Axial computed tomography images of the chest without intravenous contrast. CTDI is 35.37 mGy and DLP is 2840.93 mGy-cm. Automated exposure control was utilized for the study. A dose lowering technique was utilized adhering to the principles of ALARA. COMPARISON: 02/23/2018 FINDINGS: Lungs: 1 cm pulmonary nodule right middle lobe image 43 series 6.. This is unchanged since 2018. No consolidation. Pleural space: Unremarkable. No pneumothorax. No significant effusion. Heart: Unremarkable. No cardiomegaly. No significant pericardial effusion. No significant coronary artery calcifications. Bones/joints: Unremarkable. No acute fracture. No dislocation. Soft tissues: Unremarkable. Vasculature: Unremarkable. No thoracic aortic aneurysm. Lymph nodes: Calcified left hilar lymph nodes. IMPRESSION: No acute findings in the chest. 1 cm pulmonary nodule right middle lobe unchanged since 2018 and considered benign. Electronically signed by: Angel Gómez MD 02/24/24 06:28 AM
--- NOTE | 2024-02-24 06:30 | CT Scan Report ---
Exam(s): CT C SPINE EXAM: CT Cervical Spine Without Intravenous Contrast CLINICAL HISTORY: Reason for exam: Trauma. TECHNIQUE: Axial computed tomography images of the cervical spine without intravenous contrast. CTDI is 35.37 mGy and DLP is 2840.93 mGy-cm. Automated exposure control was utilized for the study. A dose lowering technique was utilized adhering to the principles of ALARA. COMPARISON: No relevant prior studies available. FINDINGS: No fracture or subluxations are noted. The vertebral body heights and alignment are preserved. No prevertebral soft tissue swelling. Note is made of multilevel cervical spondylosis with varying degrees of central canal and foramina stenoses. IMPRESSION: 1. No cervical fractures. 2. Cervical spondylosis with varying degrees of central canal and foramina stenoses. Electronically signed by: Angel Gómez MD 02/24/24 06:29 AM
--- NOTE | 2024-02-24 07:15 | XRay Report ---
XR wrist RT min 3V routine CLINICAL HISTORY: trauma COMPARISON: Right wrist radiographs December 13, 2008. FINDINGS: There is an acute comminuted mildly displaced fracture of the distal metaphysis of the rig ht radius with intra-articular extension. No distal right ulnar fracture is present. Carpal bones are intact. There is right wrist soft tissue swelling. IMPRESSION: Acute comminuted mildly displaced intra-articular distal right radial fracture. ACT 112: Negative or not required by law. Electronically signed by: Mu Marie M.D. 02/24/2024 7:14 AM
--- NOTE | 2024-02-24 07:18 | XRay Report ---
XR wrist LT 2V CLINICAL HISTORY: trauma COMPARISON: None FINDINGS: There is an acute significantly comminuted distal left radial fracture. Fracture is displa vijay 1.6 cm. Intra-articular extension is noted. There are multiple associated bone fragments. No defi nite distal left ulnar fracture is present. Carpal bones are suboptimally assessed on this exam but g rossly intact. There is left wrist soft tissue swelling. IMPRESSION: Acute significantly displaced and comminuted intra-articular distal left radial fracture. ACT 112: Negative or not required by law. Electronically signed by: Mu Marie M.D. 02/24/2024 7:17 AM
[2024-02-24 07:36] LABS: iSTAT Creatinine 0.8 mg/dl (0.6-1.3); iSTAT Hemoglobin 14.3 g/dl (12.0-16.0); iSTAT Ionized Calcium 1.16 mmol/l (1.12-1.32); iSTAT Potassium 3.6 mmol/L (3.3-5.0)
--- NOTE | 2024-02-24 08:03 | History & Physical Report ---
Date of Service February 24, 2024 Assessment & Plan (1) Left wrist fracture: Plan: 73 y/o with bilateral wrist fractures after a fall down [address] h/n/chest/abdomen remarkable only for "likely chronic L1 vertebral body compression fracture resulting in 20% vertebral body height loss." does not have back pain. No neck pain or tenderness on ROM. -PCU observation per trauma protocol -monitor VS, H/H Wrist fractures - -consulted Dr. Mccray. Closed reduction of L wrist fracture in ED under local anesthesia -will not be able to handle ADLs alone immediately, lives alone, has a son in the region but sounds like he will not be very helpful -PT/OT consult -care coordination consult -pain control. she prefers avoiding medication. using acetaminophen currently. she is aware that stronger medications are available if necessary (2) Right wrist fracture: Plan: see above (3) Fall: Plan: Mechanical fall No syncope or prodrome prior to fall See above (4) Head injury: Plan: CT head negative Monitor alertness / LOC Plan DVT ppx: SCDs. Low risk for VTE and she prefers to avoid medications. History of Present Illness Chief Complaint: fell down stairs, bilateral wrist pain Primary Care Provider: Tj Clements MD 73 y/o without significant medical history who fell down ten stairs. She got up at night to go to the bathroom and stepped into the stairs instead of the bathroom which is next door. This cause her fall. She hit her head and has bilateral wrist pain. Had been in her USOH prior to fall. 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 Has some bruising and pain on L forehead, no neck pain, no back pain. Some chest wall pain where she bruised R ribs. No shortness of breath or cough. No abdominal pain, nausea, vomiting, or diarrhea. No dysuria. CT trauma series done in ED Chronic pulmonary nodule, unchanged Probably chronic L1 compression fracture 20% height loss Bilateral wrist fractures on x-ray. L radial fracture was comminuted. Wrists were splinted. Allergies Allergy/AdvReac Type Severity Reaction Status Date / Time Penicillins Allergy Intermediate allergy Verified 02/24/24 08:53 test prednisone AdvReac Verified 02/24/24 08:53 Home Medications Medication Instructions Recorded Confirmed Type cholecalciferol (vitamin D3) 50 50 mcg PO DAILY #90 caps 11/11/20 02/24/24 Rx mcg (2,000 unit) capsule mecobalamin (vitamin B12) 1,000 1,000 mcg PO DAILY #90 tabs 11/11/20 02/24/24 Rx mcg chewable tablet magnesium citrate 100 mg capsule 200 mg PO QAM 02/24/24 02/24/24 History omega 3-jpl-eof-fish oil 1,000 mg 1 cap PO QAM 02/24/24 02/24/24 History (120 mg-180 mg) capsule (Fish Oil) Past Med/Surg History Problem List (Updated 02/24/24 @ 06:33 by Fadumo Rodas PA-C) Fall (Acute) Head injury (Acute) Left wrist fracture (Acute) Right wrist fracture (Acute) Grieving Colon cancer screening Left shoulder pain Vitamin D deficiency disease Right ear impacted cerumen Health care maintenance Deformity of foot (Acute) Hyperglycemia (Acute) Hyperlipidemia (Acute) Knee pain, bilateral (Acute) Lung nodule (Acute) Nephrolithiasis (Acute) Osteopenia (Acute) Medical History Abdominal bloating Cerumen impaction No known health problems Urinary tract infection Contusion of face Surgical History S/P breast lumpectomy Family History Mother Cardiac disorder Father Cardiac disorder Myocardial infarction Adrenal cancer Aunt No problems noted. Sister Cardiac disorder Other Cancer Diabetes Hypertension Denies family history of Colon cancer Ovarian cancer Prostate cancer Breast cancer Colorectal cancer Social History Smoking Status: Never smoker Second Hand Exposure: No; Hx Alcohol Use: No Hx Substance Use: No Preferred Language: [place] Visual Impairment: No Limitations Hearing Ability: Normal marital status: Current Living Situation: Alone current occupational status: employed Feels Safe at Home: Yes Childhood Exposure to Second-Hand Smoke: Yes Dental Care, Regularly: Yes Physical Activity Frequency: Daily Seatbelt Use: always Sunscreen Use: Yes Review of Systems 2 Review of Systems: All systems reviewed & are unremarkable except as noted in HPI & below Physical Exam 2 Physical Exam: PHYSICAL EXAMINATION Last 24h vital signs reviewed, see documentation in flowsheet General: comfortable appearing, no distress HEENT: Normocephalic, atraumatic, pupils round and equal, sclerae anicteric, no conjunctival injection, moist mucus membranes Lungs: Normal respiratory effort. Clear to auscultation bilaterally. No RRW Heart: Regular rate and rhythm, no murmurs. No JVD Abdomen: Soft, nontender, nondistended. Bowel sounds present. Extremities: Warm, dry, well-perfused. No extremity edema. Both wrists are in splints. LUE in sling. mild ecchymosis L forehead. Can do complete side to side and flex/extend ROM of neck without pain or tenderness. Neuro: Alert and oriented x 4, face symmetric, moves 4 extremities Psych: Normal affect and behavior Results & Data Results & Data Vital Signs (Past 12 Hours) Vital Signs Temp Pulse Pulse Resp BP BP Pulse Ox 02/24/24 07:22 88 14 123/68 93 02/24/24 07:03 82 12 92 02/24/24 06:10 77 16 113/64 97 02/24/24 05:30 78 16 106/63 98 02/24/24 04:50 02/24/24 04:38 81 02/24/24 04:36 36.9 C 74 16 127/51 L 98 02/24/24 04:36 36.9 C 77 16 100 02/24/24 04:35 O2 Del Method 02/24/24 07:22 Room Air 02/24/24 07:03 Room Air 02/24/24 06:10 Room Air 02/24/24 05:30 Room Air 02/24/24 04:50 Room Air 02/24/24 04:38 02/24/24 04:36 Room Air 02/24/24 04:36 Room Air 02/24/24 04:35 Room Air Laboratory Results 02/24/24 04:38 02/24/24 04:38 Diagnostic Findings Wrist X-Ray 02/24/24 00:00 FL wrist LT 2V CLINICAL HISTORY: LT WRIST REDUCTION COMPARISON STUDY: Left wrist radiographs performed earlier today. FLUOROSCOPY TIME: 5.12 seconds. Ka, r: 0.1182 mGy FLUOROSCOPIC IMAGES: 2 FINDINGS: Fluoroscopy was provided during reduction of the distal left radial fracture. Fracture alignment has significantly improved. Fine detail is diminished given overlying cast. IMPRESSION: Fluoroscopy provided during reduction of the distal left radial fracture. ACT 112: Negative or not required by law. Electronically signed by: Mu Marie M.D. 02/24/2024 12:08 PM Wrist X-Ray 02/24/24 04:37 XR wrist LT 2V CLINICAL HISTORY: trauma COMPARISON: None FINDINGS: There is an acute significantly comminuted distal left radial fracture. Fracture is displaced 1.6 cm. Intra-articular extension is noted. There are multiple associated bone fragments. No definite distal left ulnar fracture is present. Carpal bones are suboptimally assessed on this exam but grossly intact. There is left wrist soft tissue swelling. IMPRESSION: Acute significantly displaced and comminuted intra-articular distal left radial fracture. ACT 112: Negative or not required by law. Electronically signed by: Mu Marie M.D. 02/24/2024 7:17 AM Wrist X-Ray 02/24/24 04:37 XR wrist RT min 3V routine CLINICAL HISTORY: trauma COMPARISON: Right wrist radiographs December 13, 2008. FINDINGS: There is an acute comminuted mildly displaced fracture of the distal metaphysis of the right radius with intra-articular extension. No distal right ulnar fracture is present. Carpal bones are intact. There is right wrist soft tissue swelling. IMPRESSION: Acute comminuted mildly displaced intra-articular distal right radial fracture. ACT 112: Negative or not required by law. Electronically signed by: Mu Marie M.D. 02/24/2024 7:14 AM Abdomen/Pelvis CT 02/24/24 04:38 Exam(s): CT ABDOMEN + PELVIS Without Contrast Discussed with Alex Berrios PA-C on 02/23 06:15 (-04:00)E Discussed with Dr. Sanchez on 02/23 06:15 (-04:00)XAM: CT Abdomen and Pelvis Without Intravenous Contrast CLINICAL HISTORY: Reason for exam: Trauma. TECHNIQUE: Axial computed tomography images of the abdomen and pelvis without intravenous contrast. CTDI is 35.37 mGy and DLP is 2840.93 mGy-cm. Automated exposure control was utilized for the study. A dose lowering technique was utilized adhering to the principles of ALARA. COMPARISON: 02/15/2017 FINDINGS: Limitations: Exam limited secondary to a lack of IV contrast. Lung bases: 1 cm pulmonary nodule right middle lobe unchanged from prior exam. No consolidation. ABDOMEN: Liver: Unremarkable. Gallbladder and bile ducts: Cholelithiasis without CT evidence to suggest acute cholecystitis. No ductal dilation. Pancreas: Unremarkable. No ductal dilation. Spleen: Unremarkable. No splenomegaly. Adrenals: Unremarkable. No mass. Kidneys and ureters: Unremarkable. No obstructing stones. No hydronephrosis. Stomach and bowel: Unremarkable. No obstruction. No mucosal thickening. PELVIS: Appendix: No findings to suggest acute appendicitis. Bladder: Unremarkable. No stones. Reproductive: Uterus is surgically absent. There is fullness to the cervical cuff which is somewhat asymmetric. ABDOMEN and PELVIS: Intraperitoneal space: Unremarkable. No free air. No significant fluid collection. Bones/joints: Age indeterminate likely chronic L1 vertebral body compression fracture resulting in 20% vertebral body height loss. No dislocation. Soft tissues: Unremarkable. Vasculature: Unremarkable. No abdominal aortic aneurysm. Lymph nodes: Unremarkable. No enlarged lymph nodes. IMPRESSION: Exam limited as described above No acute findings in the abdomen or pelvis. Chronic changes as above. Electronically signed by: Angel Gómez MD 02/24/24 06:[address] 02/24/24 04:38 Exam(s): CT C SPINE EXAM: CT Cervical Spine Without Intravenous Contrast CLINICAL HISTORY: Reason for exam: Trauma. TECHNIQUE: Axial computed tomography images of the cervical spine without intravenous contrast. CTDI is 35.37 mGy and DLP is 2840.93 mGy-cm. Automated exposure control was utilized for the study. A dose lowering technique was utilized adhering to the principles of ALARA. COMPARISON: No relevant prior studies available. FINDINGS: No fracture or subluxations are noted. The vertebral body heights and alignment are preserved. No prevertebral soft tissue swelling. Note is made of multilevel cervical spondylosis with varying degrees of central canal and foramina stenoses. IMPRESSION: 1. No cervical fractures. 2. Cervical spondylosis with varying degrees of central canal and foramina stenoses. Electronically signed by: Angel Gómez MD 02/24/24 06:[address] 02/24/24 04:38 Exam(s): CT CHEST Without Contrast EXAM: CT Chest Without Intravenous Contrast CLINICAL HISTORY: Reason for exam: Trauma. TECHNIQUE: Axial computed tomography images of the chest without intravenous contrast. CTDI is 35.37 mGy and DLP is 2840.93 mGy-cm. Automated exposure control was utilized for the study. A dose lowering technique was utilized adhering to the principles of ALARA. COMPARISON: 02/23/2018 FINDINGS: Lungs: 1 cm pulmonary nodule right middle lobe image 43 series 6.. This is unchanged since 2018. No consolidation. Pleural space: Unremarkable. No pneumothorax. No significant effusion. Heart: Unremarkable. No cardiomegaly. No significant pericardial effusion. No significant coronary artery calcifications. Bones/joints: Unremarkable. No acute fracture. No dislocation. Soft tissues: Unremarkable. Vasculature: Unremarkable. No thoracic aortic aneurysm. Lymph nodes: Calcified left hilar lymph nodes. IMPRESSION: No acute findings in the chest. 1 cm pulmonary nodule right middle lobe unchanged since 2018 and considered benign. Electronically signed by: Angel Gómez MD 02/24/24 06:[address] 02/24/24 04:38 Exam(s): CT HEAD Without Contrast EXAM: CT Head Without Intravenous Contrast CLINICAL HISTORY: Reason for exam: Trauma. TECHNIQUE: Axial computed tomography images of the head/brain without intravenous contrast. CTDI is 35.37 mGy and DLP is 2840.93 mGy-cm. Automated exposure control was utilized for the study. A dose lowering technique was utilized adhering to the principles of ALARA. COMPARISON: No relevant prior studies available. FINDINGS: Brain: Unremarkable. No hemorrhage. No significant white matter disease. No edema. Ventricles: Unremarkable. No ventriculomegaly. Bones/joints: Unremarkable. No acute fracture. Soft tissues: Unremarkable. Sinuses: Unremarkable as visualized. No acute sinusitis. Mastoid air cells: Unremarkable as visualized. No mastoid effusion. IMPRESSION: Normal head/brain CT. Electronically signed by: Angel Gómez MD 02/24/24 06:10 AM Code Status & VTE Plan Code Status full VTE Prophylaxis Plan VTE Prophylaxis will be ordered: Yes Reason for no VTE drug order: Treatment not indicated PG Care Time/CCT Total # of Minutes Spent Total Time Spent with Patient: Total time spent is greater than 50% in coordination of care (as documented) at patient's floor/unit and/or counseling patient: Coding Level of Care Code 48979 INT INP/OBS CARE 2/55MIN Diagnoses Left wrist fracture S62.102A Right wrist fracture S62.101A Encounter type: initial encounter Fracture type: closed Fall W19.XXXA Head injury S09.90XA (2) Right wrist fracture Encounter type: initial encounter Fracture type: closed Qualified Code(s): S 62.101A - Fracture of unspecified carpal bone, right wrist, initial encounter for closed fracture
[2024-02-24] MEDS: ACETAMINOPHEN 1,000 MG/100 ML VIAL IV STA (09:50)
--- NOTE | 2024-02-24 10:29 | Orthopedic Consultation ---
Date of Service February 24, 2024 Assessment & Plan (1) Left wrist fracture: - Left distal radius fracture was quite displaced upon ED evaluation. Please see procedure note below for left wrist closed reduction. She was splinted in a sugar-tong splint, plaster splint. She should keep this on until evaluation in 5 to 7 days in the outpatient orthopedic clinic. She should remain nonweightbearing left upper extremity. Please reach out to Ortho with any questions or concerns. (2) Right wrist fracture: - Right distal radius fracture seems to be stable on x-rays today. Patient was initially placed in a volar splint, however we would like this placed in a sugar-tong splint today. She is to remain nonweightbearing right upper extremity. Follow-up as an outpatient with orthopedics. History of Present Illness Reason for Consultation: bilateral wrist fractures Requesting Physician: Ezio Luna is a 73 year old female who is being consulted today for bilateral wrist fractures that she sustained this AM after a fall down stairs. She was going to the bathroom but went through the wrong doorway and fell down 10 stairs. She was found to have bilateral wrist fractures. 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 Allergies Allergy/AdvReac Type Severity Reaction Status Date / Time Penicillins Allergy Intermediate allergy Verified 02/24/24 08:53 test prednisone AdvReac Verified 02/24/24 08:53 Home Medications Medication Instructions Recorded Confirmed Type cholecalciferol (vitamin D3) 50 50 mcg PO DAILY #90 caps 11/11/20 02/24/24 Rx mcg (2,000 unit) capsule mecobalamin (vitamin B12) 1,000 1,000 mcg PO DAILY #90 tabs 11/11/20 02/24/24 Rx mcg chewable tablet magnesium citrate 100 mg capsule 200 mg PO QAM 02/24/24 02/24/24 History omega 9-jie-fzg-fish oil 1,000 mg 1 cap PO QAM 02/24/24 02/24/24 History (120 mg-180 mg) capsule (Fish Oil) Past Med/Surg History Problem List (Updated 02/24/24 @ 06:33 by Fadumo Rodas PA-C) Fall (Acute) Head injury (Acute) Left wrist fracture (Acute) Right wrist fracture (Acute) Grieving Colon cancer screening Left shoulder pain Vitamin D deficiency disease Right ear impacted cerumen Health care maintenance Deformity of foot (Acute) Hyperglycemia (Acute) Hyperlipidemia (Acute) Knee pain, bilateral (Acute) Lung nodule (Acute) Nephrolithiasis (Acute) Osteopenia (Acute) Medical History Abdominal bloating Cerumen impaction No known health problems Urinary tract infection Contusion of face Surgical History S/P breast lumpectomy Family History Mother Cardiac disorder Father Cardiac disorder Myocardial infarction Adrenal cancer Aunt No problems noted. Sister Cardiac disorder Other Cancer Diabetes Hypertension Denies family history of Colon cancer Ovarian cancer Prostate cancer Breast cancer Colorectal cancer Social History Smoking Status: Never smoker Second Hand Exposure: No; Hx Alcohol Use: No Hx Substance Use: No Preferred Language: Belgian Visual Impairment: No Limitations Hearing Ability: Normal marital status: Current Living Situation: Alone current occupational status: employed Feels Safe at Home: Yes Childhood Exposure to Second-Hand Smoke: Yes Dental Care, Regularly: Yes Physical Activity Frequency: Daily Seatbelt Use: always Sunscreen Use: Yes Review of Systems All systems reviewed & are unremarkable except as noted in HPI & below. Physical Exam General: Alert and oriented. No acute distress. Right wrist: Upon our evaluation, she was already placed in a volar splint. She had good capillary refill and full motion of all fingers. Sensation intact. Did have the photographic equipment technician changes to a sugar-tong splint. No reduction needed for the right wrist. Left wrist: Patient was splinted in sugar-tong Ortho-Glass splint upon arrival. The splint was carefully removed. Please see procedure note below for left wrist closed reduction in splinting. There is a very small abrasion to the lateral aspect of the wrist, however no active bleeding or open wounds. There was an obvious deformity noted prior to reduction. She was neuro vastly intact before, during and after reduction procedure. She was placed in a plaster sugar-tong splint. She has good capillary refill and full sensation in the left upper extremity. Cardiovascular Vascularity grossly intact. Musculoskeletal Please see above Psychiatric A+Ox3, euthymic affect Results & Data Results & Data Laboratory Results Laboratory Results - last 24 hr 02/24/24 02/24/24 04:38 04:44 WBC 7.51 RBC 4.90 Hgb 13.7 POC Hgb 14.3 Hct 42.6 POC Hct 42 MCV 86.9 MCH 28.0 MCHC 32.2 RDW Std Deviation 45.0 RDW Coeff of Puja 14.3 Plt Count 212 MPV 11.7 Immature Gran % (Auto) 0.5 Neut % (Auto) 57.3 Lymph % (Auto) 33.0 [place] % (Auto) 7.2 Eos % (Auto) 1.2 Baso % (Auto) 0.8 Neut # (Auto) 4.30 Lymph # (Auto) 2.48 [place] # (Auto) 0.54 Eos # (Auto) 0.09 Baso # (Auto) 0.06 Immature Gran # (Auto) 0.04 POC Sodium 138 Sodium 137 POC Potassium 3.6 Potassium 3.6 POC Chloride 104 Chloride 103 Carbon Dioxide 26 POC Total CO2 23 L Anion Gap 8 POC Anion Gap 16.0 POC BUN 19 H BUN 20 Creatinine 0.72 POC Creatinine 0.8 Est Cr Clr Drug Dosing Not Reportable Est GFR ( Amer) 97.0 Est GFR (Non-Af Amer) 83.7 BUN/Creatinine Ratio 27.8 H Glucose 126 H POC Glucose (other) 122 H Calcium 9.8 POC Ioniz Calcium Dayna 1.16 Total Bilirubin 0.6 AST 17 ALT 18 Alkaline Phosphatase 76 Total Protein 7.7 Albumin 4.5 Globulin 3.2 Albumin/Globulin Ratio 1.4 Diagnostic Findings Did review x-ray images of bilateral wrist today. Right wrist: Minimal displacement of right distal radius. No other fractures noted in the left wrist. Left wrist: There is dorsal displacement of left distal radius. Did also obtain postreduction films which shows adequate reduction of the left distal radius. PG Care Time/CCT Total # of Minutes Spent Total Time Spent with Patient: Total time spent is greater than 50% in coordination of care (as documented) at patient's floor/unit and/or counseling patient: Supervising Physician Co-Signing Physician Notes ATTENDING NOTE: Jeimy Lucio PA-C assisted in caring for this patient. I agree with the note. I confirmed the history and performed the physical exam myself. The assessment and plan is my own. Coding Level of Care Code 30615 IN/OBS CONSULT LVL 4,60M Diagnoses Left wrist fracture S62.102A Right wrist fracture S62.101A Encounter type: initial encounter Fracture type: closed Additional Codes Fx Wrist - Distal radius: Distal radius ([id number]) (2) Right wrist fracture Encounter type: initial encounter Fracture type: closed Qualified Code(s): S62.101A - Fracture of unspecified carpal bone, right wrist, initial encounter for closed fracture
[2024-02-24] MEDS: MoRPHine SULFATE 4 MG/ML 1 ML CARP\\VIAL ONE (11:21)
[2024-02-24] MEDS: LIDOCAINE 1% LOCAL 20 ML VIAL ONE (11:21)
[2024-02-24] MEDS: MoRPHine SULFATE 4 MG/ML 1 ML CARP\\VIAL IV STA (11:22)
[2024-02-24] MEDS: BUPIVACAINE/EPINEPHRINE 0.5% 1:200,000 1.8 ML CARP ONE ×3 (11:23→11:26)
[2024-02-24] MEDS: LIDOCAINE 1% LOCAL 20 ML VIAL INFIL STA (11:25)
[2024-02-24] MEDS: BUPIVACAINE/EPINEPHRINE 0.25% 1:200,000 30 ML VIAL INFIL ONE (12:09)
--- NOTE | 2024-02-24 12:10 | Fluoroscopy Report ---
FL wrist LT 2V CLINICAL HISTORY: LT WRIST REDUCTION COMPARISON STUDY: Left wrist radiographs performed earlier today. FLUOROSCOPY TIME: 5.12 seconds. Ka, r: 0.1182 mGy FLUOROSCOPIC IMAGES: 2 FINDINGS: Fluoroscopy was provided during reduction of the distal left radial fracture. Fracture alig nment has significantly improved. Fine detail is diminished given overlying cast. IMPRESSION: Fluoroscopy provided during reduction of the distal left radial fracture. ACT 112: Negative or not required by law. Electronically signed by: Mu Marie M.D. 02/24/2024 12:08 PM
--- NOTE | 2024-02-24 13:09 | Procedure Note ---
Procedure Note Date of Service February 24, 2024 Procedure: LEFT DISTAL RADIUS CLOSED REDUCTION: After explanation of the x-ray findings and the diagnosis, prognosis and treatment options for distal radius fractures, I explained the purpose of a closed reduction and splinting with a hematoma block to the patient. We discussed the risks and benefits of the hematoma block. The patient was agreeable to proceed. We timed out to confirm procedure which was closed reduction and splinting with a hematoma block and laterality. I was assisted by the ED management services technician. After cleansing the scan and prepping the dorsal radius with alcohol 5 cc each of 1% lidocaine and half percent Marcaine were injected using sterile technique to the fracture site which was palpable. There was a positive herrera of blood consistent with a hematoma block before injection. The injection worked well. She was given some Morphine during the procedure. She was very comfortable throughout the procedure. Finger traps were used intermittently. A stockinette was placed. We performed a reduction maneuver which consisted accentuating the deformity, digital pressure on the distal fragment and then pressure on the distal radius to reduce the deformity. There was a palpable and obvious reduction of her fracture. This was confirmed with x-ray. The stockinette was rolled up followed by adequate web roll. Plaster sugar tong splint was then applied. Splint was then molded in a three-point fashion to support the fracture reduction. The splint was overwrapped with additional air web roll and then contained by an Adrian wrap. Final images were obtained to confirm reduction. Elevation and finger range of motion exercises were demonstrated. She remained NV intact. Patient tolerated procedure well and was turned back over to the emergency room staff for disposition and discharge. Coding Additional Codes Date of Service (PG.[email or web address])
[2024-02-24] MEDS: BUPIVACAINE/EPINEPHRINE 0.5% MPF 1:200,000 30 ML VIAL INFIL ONE (13:36)
[2024-02-24] MEDS: ACETAMINOPHEN 500 MG TAB PO SCH (14:47)
[2024-02-24] MEDS ORDERED: ONDANSETRON INJ 2 MG/ML 2 ML VIAL IV PRN (15:47)
[2024-02-24] MEDS ORDERED: POLYETHYLENE (MIRALAX) 17 GM PACK PO PRN (15:47)
[2024-02-24] MEDS ORDERED: ALUMINUM/MAGNESIUM SUSP 30 ML UDC PO PRN (15:47)
[2024-02-24] MEDS ORDERED: MAGNESIUM HYDROXIDE SUSP 30 ML UDC PO PRN (15:47)
[2024-02-25] MEDS: ACETAMINOPHEN 500 MG TAB PO PRN (00:31)
--- NOTE | 2024-02-25 07:42 | XRay Report ---
XR wrist RT 2V CLINICAL HISTORY: Eval post splint COMPARISON: Right wrist radiographs February 24, 2024 at 4:45 AM. FINDINGS: Alignment of the distal right radial metaphyseal fracture has improved and appears near an atomic post splinting. No additional fractures are identified. Fine detail is diminished given overly ing splint. IMPRESSION: Near anatomic alignment of the distal right radial metaphyseal fracture post splinting. ACT 112: Negative or not required by law. Electronically signed by: Mu Marie M.D. 02/25/2024 7:41 AM
--- NOTE | 2024-02-25 07:45 | XRay Report ---
XR wrist LT 2V CLINICAL HISTORY: Eval alignment post splint COMPARISON: Left wrist radiographs and fluoroscopic images of the left wrist performed earlier today. FINDINGS: Following detailed is diminished given overlying splint. However, these images demonstrate interval improvement in alignment of the distal left radial fracture. IMPRESSION: Interval improvement in alignment of the distal left radial fracture post splinting. ACT 112: Negative or not required by law. Electronically signed by: Mu Marie M.D. 02/25/2024 7:43 AM
[2024-02-25] MEDS: OMEGA-3 (PURIFIED FISH OIL) 1 GM CAP PO SCH (08:22)
[2024-02-25] MEDS: CHOLECALCIFEROL 25 MCG (1000 UNITS) TAB PO SCH (08:22)
[2024-02-25] MEDS: CYANOCOBALAMIN (B-12) 500 MCG TABLET PO SCH (08:22)
--- NOTE | 2024-02-25 08:39 | Anesthesiology Consultation ---
Date of Service February 25, 2024 Assessment & Plan Chart Review Chart Review: Acceptable Risk for Surgery and Patient NOT seen in Pre Admission Testing Consults Requested none ASA ASA3 Proposed Anesthesia Anesthesia Type: General Regional Regional Laterality: Left Site: Axillary History Surgery Operation Date: 02/25/24 09:30 Proposed Procedures p Open Reduction Internal Fixation Arm(Bilateral) - Macho Mccray MD Height/Weight Height: 5 ft 0.5 in Weight: 71 kg Allergies Allergy/AdvReac Type Severity Reaction Status Date / Time Penicillins Allergy Intermediate allergy Verified 02/24/24 08:53 test prednisone AdvReac Verified 02/24/24 08:53 Medications Home Medications Medication Instructions Recorded Confirmed Last Taken cholecalciferol (vitamin D3) 50 50 mcg PO DAILY #90 caps 11/11/20 02/24/24 02/23/24 mcg (2,000 unit) capsule mecobalamin (vitamin B12) 1,000 1,000 mcg PO DAILY #90 tabs 11/11/20 02/24/24 02/23/24 mcg chewable tablet magnesium citrate 100 mg capsule 200 mg PO QAM 02/24/24 02/24/24 02/23/24 omega 6-qwu-led-fish oil 1,000 mg 1 cap PO QAM 02/24/24 02/24/24 02/23/24 (120 mg-180 mg) capsule (Fish Oil) Active Medications Generic Name Dose Route Start Last Admin Trade Name Freq PRN Reason Stop Dose Admin Acetaminophen 1,000 mg 02/25/24 00:17 02/25/24 00:31 Acetaminophen 500 Mg Tab PO 03/25/24 13:59 1,000 mg TID PRN Administration Pain or Fever Cyanocobalamin 1,000 mcg 02/25/24 09:00 02/25/24 08:22 Cyanocobalamin (B-12) 500 Mcg Tablet PO 03/26/24 08:59 1,000 mcg DAILY YANIRA Administration Fish Oil 1 gm 02/25/24 09:00 02/25/24 08:27 [place]-3 (Purified Fish Oil) 1 Gm Cap PO 03/26/24 08:59 Not Given QAM YANIRA Vitamin D 50 mcg 02/25/24 09:00 02/25/24 08:22 Cholecalciferol 25 Mcg (1000 Units) Tab PO 03/26/24 08:59 50 mcg DAILY YANIRA Administration Past Medical History Medical History Abdominal bloating Cerumen impaction No known health problems Urinary tract infection Contusion of face Exercise / Class Metabolic Activity II 4-5 Yardwork/Stairs/Walk up hill Past Family History Family History Mother Cardiac disorder Father Cardiac disorder Myocardial infarction Adrenal cancer Aunt No problems noted. Sister Cardiac disorder Other Cancer Diabetes Hypertension Denies family history of Colon cancer Ovarian cancer Prostate cancer Breast cancer Colorectal cancer Past Surgical History Surgical History S/P breast lumpectomy Past Anesthesia History No Hx of Anesthesia Complications and No Family Hx of Anesthesia Complications History of PONV No Hx of PONV and No Hx of Motion Sickness Social History Smoking Status: Never smoker Do You Dip or Chew Tobacco: No Hx Alcohol Use: No Hx Substance Use: No substance use type: does not use Physical Exam Vital Signs Last Vital Signs Temp 37.2 C 02/25/24 07:17 Pulse 80 02/25/24 07:56 Resp 17 02/25/24 07:17 BP 157/72 H 02/25/24 07:17 Pulse Ox 96 02/25/24 07:17 O2 Del Method Room Air 02/25/24 07:17 Testing Laboratory Results 02/24/24 04:38 02/24/24 04:38 Electrocardiogram Date: 10/21/18 Findings: + NSR @ (@ 80;poss. LAE)
[2024-02-25] MEDS ORDERED: fentaNYL citrate PF 100 MCG/2 ML VIAL ONE (08:48)
[2024-02-25] MEDS ORDERED: MIDAZOLAM HCL 1 MG/ML 2ML VIAL ONE ×2 (08:48→08:49)
--- NOTE | 2024-02-25 08:48 | Orthopedic Progress Note ---
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 The timeline for ORIF is usually elective and within the first 1 or 2 weeks. Her unique issue though is that she has a bilateral problem. The right wrist is amenable to cast treatment but her elbow will be immobilized for the first 2 to 3 weeks for optimal treatment. There remains a risk of displacement, particularly due to the intra-articular and dorsal comminution components of her fracture. For this reason, ORIF is a relatively indicated procedure for her right wrist as well. Given that she has a bilateral problem, she is completely dependent on nursing care for activities of daily living and personal hygiene. Given these variables I think that it is reasonable to proceed with open reduction and internal fixation of both wrists as soon as safe to do so. This will shorten her hospitalization and decrease the time to independence with ADLs. I explained all this to her. I also reviewed that alternatives of surgery will be casting. She could even consider cast treatment of her left, but I think that residual deformity will result in suboptimal function and potential for nonunion or malunion. I definitively recommend surgery for the left wrist. Given that were already excepting the risk of anesthesia, it would be a relative indication to fix the right to shorten the duration of external immobilization. We discussed the risks of surgery include, but are not limited to, infection, symptomatic hardware, nonunion, malunion, failure to heal, need for subsequent or revision surgery, wound healing complications, blood clots, pain syndromes, loss of function, and complications related to anesthesia. Most of these risks are less than what would be expected with cast treatment. After our discussion, she demonstrated a good understanding, I showed her pictures of the internal fixation construct on the computer, she asked appropriate questions, and elected to proceed with surgical treatment of both wrists as soon as possible. Will look to schedule her today if possible. She has been NPO. Informed consent will be obtained in preoperative area. Subjective Tolerated pain with only acetaminophen. Is completely dependent on assistance for activities of daily living. Unable to go home where she lives alone. No issues with her splints, but she does feel a bit helpless. We had a long discussion today on options. Review of Systems All systems reviewed & are unremarkable except as noted in HPI & below. Physical Exam Bilateral upper extremities: The splints are in good shape. Clean and dry. Motor intact to her digits. Sensory intact. Some edema to the digits, as expected. Well-perfused. Constitutional WD/WN, vitals as above no acute distress and not intoxicated appearing Respiratory normal respiratory effort; no labored breathing Cardiovascular Extremities: normal capillary refill Results & Data Results & Data Laboratory Results H & H 02/24/24 Range/Units 04:38 Hgb 13.7 (12.0-16.0) g/dl Hct 42.6 (37.0-47.0) % Diagnostic Findings Post splinting x-rays last evening demonstrate residual displacement of the left comminuted distal radius fracture that had the most significant displacement. It is shortened and radially translated. Suboptimal alignment. Would recommend open reduction and internal fixation. On the right, it has lost its volar tilt and has about -5 dorsal tilt. Also has some very minimal shortening. Given her age, this would be acceptable for cast treatment but the alignment could be improved with an ORIF. There are small but noticeable advantages to improved alignment for remote fine motor skills. PG Care Time/CCT Total # of Minutes Spent Total Time Spent with Patient: Total time spent is greater than 50% in coordination of care (as documented) at patient's floor/unit and/or counseling patient: Coding Level of Care Code 83738 SUB INP/OBS CARE 3/50MIN (57 - DECISION FOR SURGERY) Diagnoses Left wrist fracture S62.102A Right wrist fracture S62.101A Encounter type: initial encounter Fracture type: closed (2) Right wrist fracture Encounter type: initial encounter Fracture type: closed Qualified Code(s): S62.101A - Fracture of unspecified carpal bone, right wrist, initial encounter for closed fracture
[2024-02-25] MEDS ORDERED: EPINEPHrine INJ 1 MG/ML AMP ONE (08:56)
[2024-02-25] MEDS ORDERED: ROPIVACAINE 0.5% 5 MG/ML 30 ML VIAL ONE (08:56)
[2024-02-25] MEDS ORDERED: NON-FORMULARY MEDICATION (Magnesium Citrate 100 mg Capsule) PO SCH (09:00)
[2024-02-25] MEDS: ceFAZolin 2,000 MG/15 ML IV PUSH IV ONE (09:45)
[2024-02-25] MEDS: TRANEXAMIC ACID / 0.7% NACL 1,000 MG/100 ML BAG IV SCH (09:55)
[2024-02-25] MEDS ORDERED: HYDROmorphone INJ 2 MG/ML SYR/VIAL ONE (09:58)
[2024-02-25] MEDS ORDERED: PHENYLEPHRINE 100MCG/ML 10ML SYR IV ONE (10:11)
[2024-02-25] MEDS ORDERED: ePHEDrine sulfate 50 MG/5 ML SYR ONE (10:11)
[2024-02-25] MEDS ORDERED: diphenhydrAMINE 50 MG/ML VIAL ONE (10:11)
[2024-02-25] MEDS ORDERED: ONDANSETRON INJ 2 MG/ML 2 ML VIAL ONE (10:11)
--- NOTE | 2024-02-25 13:15 | Fluoroscopy Report ---
FL wrist RT 2V CLINICAL HISTORY: RT WRIST ORIF COMPARISON STUDY: Right wrist radiographs February 24, 2024. FLUOROSCOPY TIME: 48 seconds. Ka, r: 0.66 mGy FLUOROSCOPIC IMAGES: 2 FINDINGS: Fluoroscopy was provided during open reduction and internal fixation of the distal right ra dial fracture with plate and screws. There are no unexpected radiopaque foreign bodies. Fracture alig nment appears near anatomic. IMPRESSION: Fluoroscopy provided during open reduction and internal fixation of the distal right rad ial fracture. ACT 112: Negative or not required by law. Electronically signed by: Mu Marie M.D. 02/25/2024 1:14 PM
--- NOTE | 2024-02-25 13:28 | Operative Report ---
PG Post Operative Report Pre & Post Diagnosis Operation Date: 02/25/24 09:30 Pre-Op Diagnosis: Left wrist distal radius comminuted fracture, Right wrist distal radius fracture Post-Op Diagnosis: Left wrist distal radius comminuted fracture, Right wrist distal radius fracture I identified the patient and participated in the time-out.: Yes Procedure Operation Date: 02/25/24 09:30 Actual Procedures p Bilateral Distal Radius Fracture Open Reduction Internal Fixation(Bilateral) - Macho Mccray MD Surgeon Macho Mccray MD [employer]ven Heater Jeimy Lucio PA-C Estimated Blood Loss 20 Findings See Below [Rightcomminuted, intra-articular, osteoporotic distal radial fracture with comminution on the radial column requiring calcium phosphate bone void filler. Leftcomminuted osteoporotic distal radius fracture.] Stabilized with all Synthes implants: Left: 2.4 variable angle standard 2column volar distal radius locking plate (6-hole head/3-hole shaft) 2.4 variable and fixed angle locking screws. Synthes DSM drillable bone void filler, 1.5 out of 5 cc used. Right: 2.4 variable angle standard 2column volar distal radius locking plate (6-hole head/3-hole shaft) 2.4 variable and fixed angle locking screws. Specimens None Anesthesia Type General Regional Complications none Disposition Accompanied Patient To Recovery: Yes Disposition: Recovery Room Indications 73-year-old female sustained fall at home onto bilateral outstretched hands resulting in pain and deformity. She was seen in the emergency room yesterday where closed reduction was necessary for her left side. Her right side had some residual deformity, intra-articular extension, and dorsal comminution. She was admitted overnight as she was completely dependent for ADLs. We discussed this morning that open reduction and internal fixation could accelerate her time to independence. Also recommended surgical intervention for the left that remained in unacceptable alignment. I reviewed the risk, benefits, and alternatives to surgery in detail, as outlined in the clinical note today. Informed consent was obtained today in the preoperative holding area, she desired to proceed with surgery that I described. Description of Procedure On the day of surgery, the patient was greeted in the preoperative holding area. The informed consent was reviewed and confirmed by myself and the patient. The patient identified the surgical site and was marked by me. The patient was then turned over to anesthesia. Anesthesia performed a regional anesthetic block on both sides with excellent effect. Patient was then taken to the operating room. She was placed upon the OR table and anesthesia was induced. The airway was secured. The hand table was attached for the left side. Splint was taken down. We decontaminated the arm with a thorough scrub using alcohol on four by fours. A nonsterile tourniquet was placed on the forearm. The left upper extremities then prepped and draped usual sterile fashion for wrist surgery. Chloroprep was used. Surgical timeout was called by the circulating nurse and verified by all present. Antibiotics have been infused, and equipment was available and functional. An Esmarch was used to exsanguinate the extremity, and the tourniquet was inflated to 250 mmHg for a total time of about 83 minutes. An incision was marked and then made for the length of the volar plate. Subcutaneous dissection was carried out using Bovie electrocautery. We opened the FCR sheath, and then incised through the sub-sheath. Blunt dissection was carried down to the radial column. The pronator quadratus was injured and somewhat shredded. This was elevated ulnarly to expose the radius. We exposed the fracture. Hematoma was evacuated. Irrigation was carried out. There was significant comminution and deformity on the radial column that needed to be stretched out to length with ulnar deviation and inline traction. A Waterloo was used to reapproximate the palmar side fracture fragments. The Waterloo was used to elevate the distal fragment and reduce it upon the proximal fragment cortical coello. There was significant rotational deformity as well. Fluoroscopic imaging confirmed reasonable provisional reduction. Given the collapse of the radial column, I used a K wire through the radial styloid directed to the ulnar side of the radial shaft to kickstand this up. This gave us a joystick to help with reduction. We then positioned the plate. Multiple fluoroscopic views were taken to ensure good reduction with translation of the distal fragment palmarly against the plate. Used multiple fluoroscopic views to adjust the plate. We then used the carpal translation maneuver to bring the distal fragment to the plate. The oblong hole on the shaft was then used. I fixed the plate to bone, but kept the screw loose enough to adjust the plate. Fluoroscopy was used to advanced manufacturing engineer reduction. The radial styloid had to be pulled out the length using longitudinal traction. The freer was used to adjust the cortical keys in the palmar side, and it seemed to lock in. There was noticeable osteoporosis. There was comminution of the radial column that had to be bridged. We then used the variable angle guide to place the most distal and radial styloid screw. This was done under fluoroscopic guidance. We then placed the remainder of the distal row using the locking guide tower. The second row distal screws were then filled and is well given the osteoporosis. These were all locking screws. Then moved proximally to fasten the plate down to the shaft which further lever the distal fragment now that we had fixation. All the shaft holes were placed with locking screws. The original cortical screw used to reduce the plate was swapped out for a locking screw as well. We confirmed length and reduction by multiple fluoroscopic views. Final fluoroscopic views were obtained in multiple planes to ensure no penetration of the joint and appropriate reduction and plate placement. Because of the comminution and bony defect on the radial column, I opted to use calcium phosphate bone void filler cement. This was a synthetic injectable product. It was placed through the palmar side of the defect through the plate and filled up under fluoroscopic and visual observation. This did incorporate into the vacant metaphyseal bone. There is no evidence of extravasation on the dorsal side. Total of 1-1/2 cc were used. The wound was then thoroughly irrigated. The tourniquet was left down for hemostasis. Bovie electrocautery was used minimally. Radial artery was intact. The pronator quadratus was reapproximated where possible using 0 Vicryl stitches. Deep subcutaneous tissue was approximated using interrupted deep 30 Monocryl stitches. The dermal layer was approximate using 4-0 Monocryl suture, followed by running 4-0 Monocryl subcuticular stitch. This is backed up by Steri- Strips. Wound was dressed with sterile Xeroform, sterile gauze, and ABD. Abundant web roll was placed in a volar Ortho-Glass splint was placed. The bed was then rotated to expose the right upper extremity. The hand table was swedge. A nonsterile tourniquet is placed high in the arm. The limb was then prepped and draped to do the other side An Esmarch was used to exsanguinate the extremity, and the tourniquet was inflated to 250 mmHg for a total time of about 50 to minutes. An incision was marked and then made for the length of the volar plate. Subcutaneous dissection was carried out using Bovie electrocautery. We opened the FCR sheath, and then incised through the sub-sheath. Blunt dissection was carried down to the radial column. The pronator quadratus was well-preserved and taken down in a nice flap. This was elevated ulnarly to expose the radius. We exposed the fracture. Hematoma was evacuated. Irrigation was carried out. There was obvious comminution and propagation of the fracture line towards the joint. There was a good cortical coello on the dorsal side. A Waterloo was used to reapproximate the palmar side fracture fragments. The Waterloo was used to elevate the distal fragment and reduce it upon the proximal fragment cortical coello. Fluoroscopic imaging confirmed reasonable provisional reduction. We then positioned the plate. Multiple fluoroscopic views were taken to ensure good reduction with translation of the distal fragment palmarly against the plate. Used multiple fluoroscopic views to adjust the plate. We then used the carpal translation maneuver to bring the distal fragment to the plate. The oblong hole on the shaft was then used. I fixed the plate to bone, but kept the screw loose enough to adjust the plate. Fluoroscopy was used to advanced manufacturing engineer reduction and plate position. Longitudinal traction and a volar directed shift of the distal fragment reduced the fracture fragments to the bone well. The plate was pinned for positioning. We then used the variable angle guide to place the most distal and radial styloid screw. This was done under fluoroscopic guidance. We then placed the remainder of the distal row using the locking guide tower. The second row distal screws were then filled and is well given the osteoporosis. These were all locking screws. Then moved proximally to fasten the plate down to the shaft which further lever the distal fragment now that we had fixation. All the shaft holes were placed with locking screws. The original cortical screw used to reduce the plate was swapped out for a locking screw as well. We confirmed length and reduction by multiple fluoroscopic views. Final fluoroscopic views were obtained in multiple planes to ensure no penetration of the joint and appropriate reduction and plate placement. The wound was then thoroughly irrigated. The tourniquet was left down for hemostasis. Bovie electrocautery was used minimally. Radial artery was intact. The pronator quadratus was reapproximated where possible using 0 Vicryl stitches. Deep subcutaneous tissue was approximated using interrupted deep 30 Monocryl stitches. The dermal layer was approximate using 4-0 Monocryl suture, followed by running 4-0 Monocryl subcuticular stitch. This is backed up by Steri- Strips. Wound was dressed with sterile Xeroform, sterile gauze, and ABD. Abundant web roll was placed in a volar Ortho-Glass splint was placed. Patient tolerated the procedure well, recovered from sedation in the operating room, and was transported to the recovery area. Disposition: She will be nonweightbearing remain in the splint until follow-up. Routine postoperative pain medications will be prescribed. Repeat x-rays were performed at the first follow-up appointment in 10-14 days. Physician commercial lines assistant attestation: Jeimy Lucio PA-C was present and scrubbed for the duration of the case. She was essential to prepping/draping, patient positioning, retraction, and assistance with wound closure. In particular, skilled assistance was necessary to assist with various reduction maneuvers for this distal radius fracture. I attest to the content of the Intraoperative Record and any orders documented therein. Any exceptions are noted below.
--- NOTE | 2024-02-25 13:29 | Fluoroscopy Report ---
FL wrist LT 2V CLINICAL HISTORY: LT WRIST ORIF COMPARISON STUDY: Left wrist radiographs February 24, 2024. FLUOROSCOPY TIME: 54 seconds. Ka,r: 0.72 mGy FLUOROSCOPIC IMAGES: 5 FINDINGS: Fluoroscopy was provided during open reduction and internal fixation of the distal left rad ial fracture. Plate and screw fixation is noted. Fracture alignment has significantly improved and ap pears near anatomic. There are no unexpected radiopaque foreign bodies. IMPRESSION: Fluoroscopy provided during open reduction and internal fixation of the distal left radi al fracture. ACT 112: Negative or not required by law. Electronically signed by: Mu Marie M.D. 02/25/2024 1:28 PM
--- NOTE | 2024-02-25 14:17 | Anesthesiology Progress Note ---
Date of Service February 25, 2024 Anesthesia Post Procedure Vital Signs Vital Signs: Temp Pulse Pulse Pulse Resp BP BP 02/25/24 14:05 78 16 149/66 H 02/25/24 13:50 36.4 C L 84 18 152/67 H 02/25/24 13:40 83 14 153/70 H 02/25/24 13:30 82 12 152/70 H 02/25/24 13:20 83 12 147/71 H 02/25/24 13:13 36.1 C L 85 17 160/79 H 02/25/24 07:56 80 02/25/24 07:17 37.2 C 76 17 157/72 H 02/25/24 03:34 37.0 C 71 18 154/69 H 02/25/24 00:30 37.3 C 75 18 162/66 H 02/25/24 00:00 82 02/24/24 20:00 89 16 02/24/24 18:58 93 H 02/24/24 17:27 88 23 179/90 H 02/24/24 16:40 73 15 BP Pulse Ox O2 Del Method O2 Flow Rate 02/25/24 14:05 98 Nasal Cannula 2 02/25/24 13:50 95 Room Air 02/25/24 13:40 100 Oxymask 4 02/25/24 13:30 100 Oxymask 4 02/25/24 13:20 100 Oxymask 4 02/25/24 13:13 99 Oxymask 6 02/25/24 07:56 02/25/24 07:17 96 Room Air 02/25/24 03:34 95 Room Air 02/25/24 00:30 94 Room Air 02/25/24 00:00 02/24/24 20:00 Room Air 02/24/24 18:58 02/24/24 17:27 96 Room Air 02/24/24 16:40 159/80 H 96 Room Air Pain Intensity Bilateral Wrist: Pain Intensity: 6 Right Ribs: Pain Intensity: 6 Transfer of Care Handoff Completed per policy Notes Mental Status: alert / awake / arousable Patient Amnestic to Procedure: Yes Nausea / Vomiting: adequately controlled Pain: adequately controlled Airway Patency, RR, SpO2: stable & adequate BP & HR: stable & adequate Hydration State: stable & adequate Anesthetic Complications: no major complications apparent
--- NOTE | 2024-02-25 15:36 | Hospitalist Progress Note ---
Date of Service February 25, 2024 Assessment & Plan (1) Left wrist fracture: Plan: 73 y/o with bilateral wrist fractures after a fall down [address] h/n/chest/abdomen remarkable only for "likely chronic L1 vertebral body compression fracture resulting in 20% vertebral body height loss." does not have back pain. No neck pain or tenderness on ROM. -doing well Bilateral osteoporotic wrist fractures -" Rightcomminuted, intra-articular, osteoporotic distal radial fracture with comminution on the radial column requiring calcium phosphate bone void filler. Leftcomminuted osteoporotic distal radius fracture." -consulted Dr. Mccray. Closed reduction of L wrist fracture in ED under local anesthesia 02/23 -ORIF bilateral wrist fractures by Dr. Mccray 02/24. Remain NWB bilateral UE until orthopedic follow up in -will not be able to handle ADLs alone immediately, lives alone, has a son in the region but sounds like he will not be very helpful -PT/OT consult -continue her Ca/Vit D, follow up in primary care to discuss bisphosphonate if she is willing to take one -care coordination consult -pain control. she prefers avoiding medication. using acetaminophen currently. prn oxycodone (2) Right wrist fracture: Plan: see above (3) Fall: Plan: Mechanical fall No syncope or prodrome prior to fall See above (4) Head injury: Plan: CT head negative Monitor alertness / LOC Plan DVT ppx: SCDs. Low risk for VTE and she prefers to avoid medications. Admission and Anticipated Discharge Date Admission Date: February 24, 2024 Subjective seen postop. LUE still with numness from block. Sleepy but not currently painful. Physical Exam Physical Exam: PHYSICAL EXAMINATION Last 24h vital signs reviewed, see documentation in flowsheet General: lying on side in bed HEENT: Normocephalic, atraumatic, pupils round and equal, sclerae anicteric, no conjunctival injection, moist mucus membranes Lungs: Normal respiratory effort. on minimal O2 Heart: Abdomen: Extremities: both forearms/wrists in splints, madelin fingers are warm Neuro: Alert and oriented x 4, face symmetric, moves 4 extremities Psych: Normal affect and behavior Results & Data Results & Data Vital Signs (Past 12 Hours) Vital Signs Temp Pulse Pulse Pulse Resp BP BP 02/25/24 14:45 82 18 125/75 02/25/24 14:30 84 16 117/53 L 02/25/24 14:20 88 18 130/64 02/25/24 14:05 78 16 149/66 H 02/25/24 13:50 36.4 C L 84 18 152/67 H 02/25/24 13:40 83 14 153/70 H 02/25/24 13:30 82 12 152/70 H 02/25/24 13:20 83 12 147/71 H 02/25/24 13:13 36.1 C L 85 17 160/79 H 02/25/24 07:56 80 02/25/24 07:17 37.2 C 76 17 157/72 H 02/25/24 03:34 37.0 C 71 18 154/69 H Pulse Ox O2 Del Method O2 Flow Rate 02/25/24 14:45 96 Nasal Cannula 2 02/25/24 14:30 98 Nasal Cannula 2 02/25/24 14:20 97 Nasal Cannula 2 02/25/24 14:05 98 Nasal Cannula 2 02/25/24 13:50 95 Room Air 02/25/24 13:40 100 Oxymask 4 02/25/24 13:30 100 Oxymask 4 02/25/24 13:20 100 Oxymask 4 02/25/24 13:13 99 Oxymask 6 02/25/24 07:56 02/25/24 07:17 96 Room Air 02/25/24 03:34 95 Room Air PG Care Time/CCT Total # of Minutes Spent Total Time Spent with Patient: Total time spent is greater than 50% in coordination of care (as documented) at patient's floor/unit and/or counseling patient: Coding Level of Care Code 33378 SUB INP/OBS CARE 235MIN Diagnoses Left wrist fracture S62.102A Right wrist fracture S62.101A Encounter type: initial encounter Fracture type: closed Fall W19.XXXA Head injury S09.90XA (2) Right wrist fracture Encounter type: initial encounter Fracture type: closed Qualified Code(s): S62.101A - Fracture of unspecified carpal bone, right wrist, initial encounter for closed fracture
[2024-02-25] MEDS ORDERED: oxyCODONE HCL IR 5 MG TAB (IMMEDIATE RELEASE) PO PRN (15:45)
[2024-02-25] MEDS: ceFAZolin 2000MG 2,000 MG/15 ML SYR IV ONE (17:44)
[2024-02-25] MEDS: oxyCODONE HCL IR 5 MG TAB (IMMEDIATE RELEASE) PO PRN (22:04)
[2024-02-25] MEDS: MELATONIN 3 MG TAB PO PRN (22:05)
[2024-02-26] MEDS ORDERED: ceFAZolin 2000MG 2,000 MG/15 ML SYR IV SCH (06:00)
--- NOTE | 2024-02-26 10:13 | Orthopedic Progress Note ---
Date of Service February 26, 2024 Assessment & Plan (1) Left wrist fracture: - She should remain nonweightbearing left upper extremity. Strict elevation to assist with hand edema. Can move fingers as tolerated. Can move elbow as tolerated. Should try to avoid supination and pronation, however flexion extension of the elbow okay. We would like her to follow-up as an outpatient this Monday if possible. Disposition and discharge per hospitalist team. She is cleared from an orthopedic standpoint. Would recommend working with PT/OT. (2) Right wrist fracture: - She should remain nonweightbearing right upper extremity. Strict elevation to assist with hand edema. Can move fingers as tolerated. Can move elbow as tolerated. Should try to avoid supination and pronation, however flexion extension of the elbow okay. We would like her to follow-up as an outpatient this Monday if possible. Disposition and discharge per hospitalist team. She is cleared from an orthopedic standpoint. Would recommend working with PT/OT.. Subjective Operation Date: 02/25/24 09:30 Actual Procedures p Bilateral Distal Radius Fracture Open Reduction Internal Fixation(Bilateral) - Macho Mccray MD Cheryl is postop day 1 from a bilateral distal radius ORIF. She was placed in bilateral volar splints. At today's visit, she is resting in her hospital bed. Her blocks are still in effect. She is able to move all of her fingers on both hands a little bit. Her sensation is still little bit altered, however she is doing well. She has no other questions or concerns today. Review of Systems All systems reviewed & are unremarkable except as noted in HPI & below. Physical Exam General: Alert and oriented. In no acute distress. Bilateral hands: Splints are in place without saturation. She does have some movement of all of the fingers in her hands. Both hands are swollen, however capillary refill intact and less than 3 seconds in all fingers. Sensation is starting to return. She is not elevating the extremities as instructed. Constitutional WD/WN, vitals as above Psychiatric A+Ox3, euthymic affect Results & Data Results & Data Laboratory Results . Diagnostic Findings . PG Care Time/CCT Total # of Minutes Spent Total Time Spent with Patient: Total time spent is greater than 50% in coordination of care (as documented) at patient's floor/unit and/or counseling patient: Coding Level of Care Code 83102 Post Operative Follow-Up Diagnoses Left wrist fracture S62.102A Right wrist fracture S62.101A Encounter type: initial encounter Fracture type: closed (2) Right wrist fracture Encounter type: initial encounter Fracture type: closed Qualified Code(s): S62.101A - Fracture of unspecified carpal bone, right wrist, initial encounter for closed fracture
[2024-02-26 11:46] VITALS: O2SAT 97
[2024-02-26 13:47] VITALS: BP 162/82; PULSE 78; RESP 20; TEMP 97.9
--- NOTE | 2024-02-26 18:31 | Discharge Summary ---
Discharge Summary Date of Service February 26, 2024 Principal Dx & Hospital Course #1 = Principal Diagnosis (1) Left wrist fracture: 73 y/o with bilateral wrist fractures after a fall down [address] h/n/chest/abdomen remarkable only for "likely chronic L1 vertebral body compression fracture resulting in 20% vertebral body height loss." does not have back pain. No neck pain or tenderness on ROM. -observed for greater than 24 hours after trauma and doing well,no neck or abdominal pain, has right lower chest pain related to bruising of ribs Bilateral osteoporotic wrist fractures -" Rightcomminuted, intra-articular, osteoporotic distal radial fracture with comminution on the radial column requiring calcium phosphate bone void filler. Leftcomminuted osteoporotic distal radius fracture." -consulted Dr. Mccray. Closed reduction of L wrist fracture in ED under local anesthesia 02/23 -ORIF bilateral wrist fractures by Dr. Mccray 02/24. Remain NWB bilateral UE until orthopedic follow up in 10-14d with x-rays - for osteoporosis continue her Ca/Vit D, follow up in primary care to discuss bisphosphonate if she is willing to take one -pain control. she prefers avoiding medication. using acetaminophen and occasional oxycodone currently. - discharged to acute rehab (2) Right wrist fracture: see above (3) Fall: Mechanical fall No syncope or prodrome prior to fall See above (4) Head injury: CT head negative has remained alert, no evidence of concussion observed Plan DVT ppx: ambulation, upper extremity surgery is low risk for DVT extended prophylaxis not indicated Admission HPI Per Admitting Provider 73 y/o without significant medical history who fell down ten stairs. She got up at night to go to the bathroom and stepped into the stairs instead of the bathroom which is next door. This cause her fall. She hit her head and has bilateral wrist pain. Had been in her USOH prior to fall. 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 Has some bruising and pain on L forehead, no neck pain, no back pain. Some chest wall pain where she bruised R ribs. No shortness of breath or cough. No abdominal pain, nausea, vomiting, or diarrhea. No dysuria. CT trauma series done in ED Chronic pulmonary nodule, unchanged Probably chronic L1 compression fracture 20% height loss Bilateral wrist fractures on x-ray. L radial fracture was comminuted. Wrists were splinted. Discharge Exam PHYSICAL EXAMINATION Last 24h vital signs reviewed, see documentation in flowsheet General: lying on side in bed HEENT: Normocephalic, atraumatic, pupils round and equal, sclerae anicteric, no conjunctival injection, moist mucus membranes Lungs: Normal respiratory effort. clear to auscultation bilaterally Heart: regular no MRG Abdomen: soft nondistended Extremities: both forearms/wrists in splints, madelin fingers are warm Neuro: Alert and oriented x 4, face symmetric, moves 4 extremities Psych: Normal affect and behavior Updated Medication List Medication Instructions Recorded Confirmed Type cholecalciferol (vitamin D3) 50 50 mcg PO DAILY #90 caps 11/11/20 02/24/24 Rx mcg (2,000 unit) capsule mecobalamin (vitamin B12) 1,000 1,000 mcg PO DAILY #90 tabs 11/11/20 02/24/24 Rx mcg chewable tablet magnesium citrate 100 mg capsule 200 mg PO QAM 02/24/24 02/24/24 History omega 1-ynx-gsw-fish oil 1,000 mg 1 cap PO QAM 02/24/24 02/24/24 History (120 mg-180 mg) capsule (Fish Oil) acetaminophen 500 mg tablet 1,000 mg (2 x 500 mg) PO TID PRN 02/26/24 Rx (Tylenol Extra Strength) fever or pain #0 tabs oxycodone 5 mg tablet 5 mg PO Q4H PRN #0 tabs 02/26/24 Rx Hospital Stay Data Consultations 02/24/24 06:42 ED Decision to Admit Stat 02/24/24 08:13 Consult Orthopedic Surgery Stat Procedures Performed Operation Date: 02/25/24 09:30 Actual Procedures p Bilateral Distal Radius Fracture Open Reduction Internal Fixation(Bilateral) - Macho Mccray MD Diagnostic Imagining Performed 02/24/24 FL wrist LT 2V Routine 02/24/24 04:38 CT abd pelvis wo con Stat CT cervical spine wo con Stat CT chest diagnostic wo con Stat CT head/brain wo con Stat 02/25/24 FL wrist LT 2V Routine FL wrist RT 2V Routine 02/25/24 09:09 US - OR guided needle placemen Stat Wrist X-Ray 02/24/24 00:00 FL wrist LT 2V CLINICAL HISTORY: LT WRIST REDUCTION COMPARISON STUDY: Left wrist radiographs performed earlier today. FLUOROSCOPY TIME: 5.12 seconds. Ka, r: 0.1182 mGy FLUOROSCOPIC IMAGES: 2 FINDINGS: Fluoroscopy was provided during reduction of the distal left radial fracture. Fracture alignment has significantly improved. Fine detail is diminished given overlying cast. IMPRESSION: Fluoroscopy provided during reduction of the distal left radial fracture. ACT 112: Negative or not required by law. Electronically signed by: Mu Marie M.D. 02/24/2024 12:08 PM Wrist X-Ray 02/24/24 04:37 XR wrist LT 2V CLINICAL HISTORY: trauma COMPARISON: None FINDINGS: There is an acute significantly comminuted distal left radial fracture. Fracture is displaced 1.6 cm. Intra-articular extension is noted. There are multiple associated bone fragments. No definite distal left ulnar fracture is present. Carpal bones are suboptimally assessed on this exam but grossly intact. There is left wrist soft tissue swelling. IMPRESSION: Acute significantly displaced and comminuted intra-articular distal left radial fracture. ACT 112: Negative or not required by law. Electronically signed by: Mu Marie M.D. 02/24/2024 7:17 AM Wrist X-Ray 02/24/24 04:37 XR wrist RT min 3V routine CLINICAL HISTORY: trauma COMPARISON: Right wrist radiographs December 13, 2008. FINDINGS: There is an acute comminuted mildly displaced fracture of the distal metaphysis of the right radius with intra-articular extension. No distal right ulnar fracture is present. Carpal bones are intact. There is right wrist soft tissue swelling. IMPRESSION: Acute comminuted mildly displaced intra-articular distal right radial fracture. ACT 112: Negative or not required by law. Electronically signed by: Mu Marie M.D. 02/24/2024 7:14 AM Abdomen/Pelvis CT 02/24/24 04:38 Exam(s): CT ABDOMEN + PELVIS Without Contrast Discussed with Alex Berrios PA-C on 02/23 06:15 (-04:00)E Discussed with Dr. Sanchez on 02/23 06:15 (-04:00)XAM: CT Abdomen and Pelvis Without Intravenous Contrast CLINICAL HISTORY: Reason for exam: Trauma. TECHNIQUE: Axial computed tomography images of the abdomen and pelvis without intravenous contrast. CTDI is 35.37 mGy and DLP is 2840.93 mGy-cm. Automated exposure control was utilized for the study. A dose lowering technique was utilized adhering to the principles of ALARA. COMPARISON: 02/15/2017 FINDINGS: Limitations: Exam limited secondary to a lack of IV contrast. Lung bases: 1 cm pulmonary nodule right middle lobe unchanged from prior exam. No consolidation. ABDOMEN: Liver: Unremarkable. Gallbladder and bile ducts: Cholelithiasis without CT evidence to suggest acute cholecystitis. No ductal dilation. Pancreas: Unremarkable. No ductal dilation. Spleen: Unremarkable. No splenomegaly. Adrenals: Unremarkable. No mass. Kidneys and ureters: Unremarkable. No obstructing stones. No hydronephrosis. Stomach and bowel: Unremarkable. No obstruction. No mucosal thickening. PELVIS: Appendix: No findings to suggest acute appendicitis. Bladder: Unremarkable. No stones. Reproductive: Uterus is surgically absent. There is fullness to the cervical cuff which is somewhat asymmetric. ABDOMEN and PELVIS: Intraperitoneal space: Unremarkable. No free air. No significant fluid collection. Bones/joints: Age indeterminate likely chronic L1 vertebral body compression fracture resulting in 20% vertebral body height loss. No dislocation. Soft tissues: Unremarkable. Vasculature: Unremarkable. No abdominal aortic aneurysm. Lymph nodes: Unremarkable. No enlarged lymph nodes. IMPRESSION: Exam limited as described above No acute findings in the abdomen or pelvis. Chronic changes as above. Electronically signed by: Angel Gómez MD 02/24/24 06:[address] 02/24/24 04:38 Exam(s): CT C SPINE EXAM: CT Cervical Spine Without Intravenous Contrast CLINICAL HISTORY: Reason for exam: Trauma. TECHNIQUE: Axial computed tomography images of the cervical spine without intravenous contrast. CTDI is 35.37 mGy and DLP is 2840.93 mGy-cm. Automated exposure control was utilized for the study. A dose lowering technique was utilized adhering to the principles of ALARA. COMPARISON: No relevant prior studies available. FINDINGS: No fracture or subluxations are noted. The vertebral body heights and alignment are preserved. No prevertebral soft tissue swelling. Note is made of multilevel cervical spondylosis with varying degrees of central canal and foramina stenoses. IMPRESSION: 1. No cervical fractures. 2. Cervical spondylosis with varying degrees of central canal and foramina stenoses. Electronically signed by: Angel Gómez MD 02/24/24 06:[address] 02/24/24 04:38 Exam(s): CT CHEST Without Contrast EXAM: CT Chest Without Intravenous Contrast CLINICAL HISTORY: Reason for exam: Trauma. TECHNIQUE: Axial computed tomography images of the chest without intravenous contrast. CTDI is 35.37 mGy and DLP is 2840.93 mGy-cm. Automated exposure control was utilized for the study. A dose lowering technique was utilized adhering to the principles of ALARA. COMPARISON: 02/23/2018 FINDINGS: Lungs: 1 cm pulmonary nodule right middle lobe image 43 series 6.. This is unchanged since 2018. No consolidation. Pleural space: Unremarkable. No pneumothorax. No significant effusion. Heart: Unremarkable. No cardiomegaly. No significant pericardial effusion. No significant coronary artery calcifications. Bones/joints: Unremarkable. No acute fracture. No dislocation. Soft tissues: Unremarkable. Vasculature: Unremarkable. No thoracic aortic aneurysm. Lymph nodes: Calcified left hilar lymph nodes. IMPRESSION: No acute findings in the chest. 1 cm pulmonary nodule right middle lobe unchanged since 2018 and considered benign. Electronically signed by: Angel Gómez MD 02/24/24 06:[address] 02/24/24 04:38 Exam(s): CT HEAD Without Contrast EXAM: CT Head Without Intravenous Contrast CLINICAL HISTORY: Reason for exam: Trauma. TECHNIQUE: Axial computed tomography images of the head/brain without intravenous contrast. CTDI is 35.37 mGy and DLP is 2840.93 mGy-cm. Automated exposure control was utilized for the study. A dose lowering technique was utilized adhering to the principles of ALARA. COMPARISON: No relevant prior studies available. FINDINGS: Brain: Unremarkable. No hemorrhage. No significant white matter disease. No edema. Ventricles: Unremarkable. No ventriculomegaly. Bones/joints: Unremarkable. No acute fracture. Soft tissues: Unremarkable. Sinuses: Unremarkable as visualized. No acute sinusitis. Mastoid air cells: Unremarkable as visualized. No mastoid effusion. IMPRESSION: Normal head/brain CT. Electronically signed by: Angel Gómez MD 02/24/24 06:10 AM Wrist X-Ray 02/24/24 20:31 XR wrist RT 2V CLINICAL HISTORY: Eval post splint COMPARISON: Right wrist radiographs February 24, 2024 at 4:45 AM. FINDINGS: Alignment of the distal right radial metaphyseal fracture has improved and appears near anatomic post splinting. No additional fractures are identified. Fine detail is diminished given overlying splint. IMPRESSION: Near anatomic alignment of the distal right radial metaphyseal fracture post splinting. ACT 112: Negative or not required by law. Electronically signed by: Mu Marie M.D. 02/25/2024 7:41 AM Wrist X-Ray 02/24/24 20:31 XR wrist LT 2V CLINICAL HISTORY: Eval alignment post splint COMPARISON: Left wrist radiographs and fluoroscopic images of the left wrist performed earlier today. FINDINGS: Following detailed is diminished given overlying splint. However, these images demonstrate interval improvement in alignment of the distal left radial fracture. IMPRESSION: Interval improvement in alignment of the distal left radial fracture post splinting. ACT 112: Negative or not required by law. Electronically signed by: Mu Marie M.D. 02/25/2024 7:43 AM Wrist X-Ray 02/25/24 00:00 FL wrist LT 2V CLINICAL HISTORY: LT WRIST ORIF COMPARISON STUDY: Left wrist radiographs February 24, 2024. FLUOROSCOPY TIME: 54 seconds. Ka,r: 0.72 mGy FLUOROSCOPIC IMAGES: 5 FINDINGS: Fluoroscopy was provided during open reduction and internal fixation of the distal left radial fracture. Plate and screw fixation is noted. Fracture alignment has significantly improved and appears near anatomic. There are no unexpected radiopaque foreign bodies. IMPRESSION: Fluoroscopy provided during open reduction and internal fixation of the distal left radial fracture. ACT 112: Negative or not required by law. Electronically signed by: Mu Marie M.D. 02/25/2024 1:28 PM Wrist X-Ray 02/25/24 00:00 FL wrist RT 2V CLINICAL HISTORY: RT WRIST ORIF COMPARISON STUDY: Right wrist radiographs February 24, 2024. FLUOROSCOPY TIME: 48 seconds. Ka, r: 0.66 mGy FLUOROSCOPIC IMAGES: 2 FINDINGS: Fluoroscopy was provided during open reduction and internal fixation of the distal right radial fracture with plate and screws. There are no unexpected radiopaque foreign bodies. Fracture alignment appears near anatomic. IMPRESSION: Fluoroscopy provided during open reduction and internal fixation of the distal right radial fracture. ACT 112: Negative or not required by law. Electronically signed by: Mu Marie M.D. 02/25/2024 1:14 PM 02/24/24 04:38 02/24/24 04:38 Pending Results Patient Have Any Pending Studies at Discharge: No Discharge Instructions Given to Patient (Per Discharging Provider) Bilateral ORIF 02/24 Nonweightbearing bilateral UE. Full weightbearing lower extremities Schedule follow up with Dr. Mccray in 10-14 days with Xrays for wrist fractures PT and OT evaluate and treat Total Time Total Time Spent Total Time Spent (In Minutes): I personally spent: 35 minutes today on clinical care activities including: reviewing chart notes and vital signs discussion with school childcare attendant examining and counseling the patient writing discharge orders, discharge instructions, prescriptions documentation Coding Level of Care Code 66731 INP/OBS DISCH >30 MIN Diagnoses Left wrist fracture S62.102A Right wrist fracture S62.101A Encounter type: initial encounter Fracture type: closed Fall W19.XXXA Head injury S09.90XA
== END 2024-02-26 14:27 ==
LOC: ED 04:30 → EDINP 04:30 → 2E 15:46 → 3W 02-25 15:21